=== PATIENT | female | born 1965 | race Caucasian/White ===

== ENCOUNTER → 2021-09-21 15:16 | Outpatient (BNVA) | payer OTHER, SELFPAY | PROVIDERS: PCP Internal Medicine; Visit Provider Hospitalist | DX: J44.9 Chronic obstructive pulmonary disease, unspecified (principal); J96.10 Chronic respiratory failure, unspecified whether with hypoxia or hypercapnia; R91.8 Other nonspecific abnormal finding of lung field; K44.9 Diaphragmatic hernia without obstruction or gangrene; F19.20 Other psychoactive substance dependence, uncomplicated | CPT/HCPCS: 99202 ==

== ENCOUNTER → 2021-10-12 15:30 | Outpatient (BNVA) | payer OTHER, SELFPAY | PROVIDERS: PCP Internal Medicine; Visit Provider Hospitalist | DX: J44.9 Chronic obstructive pulmonary disease, unspecified (principal); J96.10 Chronic respiratory failure, unspecified whether with hypoxia or hypercapnia; F19.20 Other psychoactive substance dependence, uncomplicated; R91.8 Other nonspecific abnormal finding of lung field; K44.9 Diaphragmatic hernia without obstruction or gangrene | CPT/HCPCS: 94618; 99212 ==

== ENCOUNTER 2021-10-16 15:18 | Outpatient (REF) | payer OTHER, SELFPAY ==
[2021-10-16 15:44] LABS: ABG Refer to POC result
--- NOTE | 2021-10-16 17:14 | PFT_ITS ---
Forced vital capacity 48%, FEV1 25%, FEV1/FVC ratio is 53. [id number] 8% and MVV 34%. Post bronchodilator therapy, there is small but significant improvement in all flow volumes. Total lung capacity 123%. Residual volume 230%. Diffusion capacity is 30%. CONCLUSION: Very severe obstructive airway disorder. There is minimal improvement after bronchodilator therapy suggesting diagnosis of asthma/COPD overlap syndrome. There is evidence of hyperinflation and air trapping. Clinical correlation is recommended. MD RAMBO Aguirre/MODL / [id number]
[2021-10-17 08:51] LABS: ABG Base Excess -2.8 mmol/L; ABG HCO3 22 mmol/L (22-26); ABG pCO2 38 mmHg (32-45); ABG pH 7.36 (7.35-7.45); ABG pO2 94 mmHg (83-108)
== END 2021-10-16 15:19 | disposition home or self-care (01) ==
LOC: HO.RESP 15:18
PROVIDERS: PCP Internal Medicine; Visit Provider Hospitalist
DX: J44.9 Chronic obstructive pulmonary disease, unspecified (principal)
CPT/HCPCS: 82803; 94060; 94727; 94729

== ENCOUNTER 2021-11-03 14:11 | Outpatient (REF) | payer OTHER, SELFPAY ==
--- NOTE | ~2021-11-03 | CT_ITS ---
EXAMINATION: CT CHEST SCREENING CLINICAL INFORMATION: Former smoker. Quit 5 years ago. 35 pack year history. COMPARISON: None. TECHNIQUE: Multidetector volumetric CT imaging of the chest is performed without contrast using low dose technique. Additional 2D coronal and sagittal reformatted images and axial 3D maximum intensity projection (MIP) images are generated on the CT workstation. This CT examination was performed using dose optimization techniques as appropriate, variously including the following: *Automated exposure control *Adjustment of mA and/or kV according to patient size (this includes techniques or standardized protocols for targeted exams where dose is matched to indication/reason for exam; i.e. extremities or head) *Use of iterative reconstruction technique DLP: 185 mGy-cm FINDINGS: LUNGS: There is emphysema. There are areas of clustered small peribronchial nodules or tree-in-bud appearance suggestive of airways disease in the right upper lobe. There are small calcified pulmonary nodules, largest measuring 3 mm in the right lower lobe axial image 281 and 3 mm in the left lower lobe axial image 236 series 5. There is a 4 mm peripheral or subpleural noncalcified right upper lobe nodule adjacent to the minor fissure axial image 251 series 5. There is a 4 mm peripheral or subpleural right middle lobe nodule axial image 297 series 5. These probably represent subpleural lymph nodes. No endobronchial or endotracheal lesion is seen. MEDIASTINUM: There is mild coronary artery calcification. The mediastinum is otherwise normal. PLEURA: There is no pleural effusion. No pleural mass or thickening. AXILLA: No lymphadenopathy. UPPER ABDOMEN: The left kidney is not seen. There is high attenuation seen dependently in the gallbladder suggestive of gallstones. OSSEOUS STRUCTURES: Unremarkable. CT/CT lung screening IMPRESSION: Emphysema. Small clustered peribronchial nodules or tree-in-bud appearance in the right upper lobe suggestive of airways disease. Small calcified and noncalcified micronodules. Mild coronary artery calcification. Left kidney not seen. Probable gallstones. ASSESSMENT: Lung-RADS category 2: Benign RECOMMENDATION: Annual low-dose chest CT follow-up recommended.
== END 2021-11-03 14:12 | disposition home or self-care (01) ==
LOC: HO.CT 14:11
PROVIDERS: Visit Provider Physician Assistant Medical
DX: Z87.891 Personal history of nicotine dependence (principal)
CPT/HCPCS: 71271; G0296

== ENCOUNTER → 2021-12-04 15:21 | Outpatient (BNVA) | payer OTHER, SELFPAY | PROVIDERS: PCP Internal Medicine; Visit Provider Hospitalist | DX: J44.9 Chronic obstructive pulmonary disease, unspecified (principal); J96.10 Chronic respiratory failure, unspecified whether with hypoxia or hypercapnia; R91.8 Other nonspecific abnormal finding of lung field; F19.20 Other psychoactive substance dependence, uncomplicated; K44.9 Diaphragmatic hernia without obstruction or gangrene | CPT/HCPCS: 99212 ==

== ENCOUNTER → 2022-03-09 15:21 | Outpatient (BNVA) | payer OTHER, SELFPAY | PROVIDERS: PCP Internal Medicine; Visit Provider Hospitalist | DX: J44.9 Chronic obstructive pulmonary disease, unspecified (principal); J96.10 Chronic respiratory failure, unspecified whether with hypoxia or hypercapnia; R91.8 Other nonspecific abnormal finding of lung field; K44.9 Diaphragmatic hernia without obstruction or gangrene; F19.20 Other psychoactive substance dependence, uncomplicated; Z79.52 Long term (current) use of systemic steroids; Z79.899 Other long term (current) drug therapy; Z99.81 Dependence on supplemental oxygen | CPT/HCPCS: 99212 ==

== ENCOUNTER → 2023-01-10 15:19 | Outpatient (BNVA) | payer OTHER, SELFPAY | PROVIDERS: PCP Internal Medicine; Visit Provider Hospitalist | DX: J44.9 Chronic obstructive pulmonary disease, unspecified (principal); J96.10 Chronic respiratory failure, unspecified whether with hypoxia or hypercapnia; R91.8 Other nonspecific abnormal finding of lung field; F19.20 Other psychoactive substance dependence, uncomplicated; K44.9 Diaphragmatic hernia without obstruction or gangrene | CPT/HCPCS: 99212 ==

== ENCOUNTER 2023-07-18 15:05 | Outpatient (AMB) | payer OTHER, SELFPAY ==
[2023-07-18 15:12] VITALS: PULSE 92; O2SAT 96; BMI 30.1
--- NOTE | 2023-07-18 15:12 | MHC.OFFVIS ---
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 She had been admitted to the hospital and ultimately discharged on palliative care. Subsequently she transition to hospice level of care. However her condition stabilized and she was able to not qualify for hospice and longer. Soft to 2 years hospice was discontinued. She continues to receive help from family. She continues on her oxygen supplementation. The patient continues on her respiratory therapy with good adherence. She has been steroid dependent. At this point will re-evaluate her overall condition. The patient also has a history of tobacco dependency. She now has quit. She has had stable pulmonary nodules in the past. Due to her smoking history she is high risk for malignancy so therefore we will refer her to the lung cancer screening program. 10/12/2021 The patient is here for a follow up visit. Doing well. Very dyspneic, moderate to severe. During our ambulation she became very tachycardic. She needs to change DME vendors for her oxygen after discontinuing the hospice care. Has been using her oxygen. Uses a walker. Needs better portability with her weakness and unsteady gain. Will request a POC. She is scheduled to have CT chest and PFTs soon. 12/04/2021 the patient is here for a pulmonary follow-up visit. She continues to have a hard time with her breathing. She continues use her oxygen with improving her symptoms although sometimes is hard for her to carry the oxygen tanks. Sometimes she where she is going to run out of oxygen as well. She was wondering if she should have a portable oxygen concentrator that maybe give her additional portability. Will continue to see her response to therapy. Will consider a portable oxygen concentrator in the near future. In the meantime she continues to have significant dyspnea on exertion. She did undergo pulmonary function studies. Her FEV1 is down to 0.67 L which is a very severe obstructive ventilatory defect. This is consistent with very severe COPD. She also had a CT scan of the chest which demonstrated that she has extensive emphysema but primarily upper lung zone predominant. The patient is not interested in lung transplantation at this time. Although, she may be a very good candidate for lung volume reduction interventions. I did talk to her about the one-way valves and other potential interventions that she can consider that can provide her with better quality of life. In the meantime she should be participating in pulmonary rehab. She has done pulmonary rehab a few times already. I did give her information about online pulmonary rehab that she should be participating at this time. The patient has very severe COPD and ongoing symptoms. She has significant air trapping. The patient will benefit from noninvasive ventilator. Will then help with decreased work of breathing also help with gas exchange. Patient already carries very poor prognosis. Noninvasive ventilator would provide her with improved prognosis and decrease hospitalizations. Therefore will go ahead and start the process for her to start noninvasive ventilator with local [employer] company. 03/09/2022 the patient is here for pulmonary follow-up visit. She continues to struggle with breathing. Significant dyspnea on exertion. She also has lower extremity weakness. She comes in on a wheelchair. She has been using her oxygen. She is upset she could not get the noninvasive ventilator. Unfortunately her insurance company denied it. She at this time will have her undergo a in-lab sleep study in order to monitor her end-tidal CO2 and see if she qualifies for PAP therapy that fashion. She continues use respiratory therapy. She does have partial response to therapy. We did talk about considering the lung volume reduction interventions such as the xephyr valves. She is strongly considering this. However, she would like to wait until next year. The patient needs to start pulmonary rehabilitation. I did provide her information previously about online rehab. 01/10/2023 the patient is here for a pulmonary follow-up visit. She has been about the same. Continues use her oxygen with good effect. She does not leave the house much. A less for doctor's appointments. She continues with respiratory therapy. She does not want to pursue and person pulmonary rehab. Also is not interested in pursuing any tertiary referral to [place]. she continues using prednisone as prescribed. She has been trying to cut down. Based on her chronic use of prednisone she will probably require a small dose daily. With did repeat her alpha-1 antitrypsin DNA swab since she has not had this type of swab in the past. Very unlikely to be positive with multiple alpha-1 testings done previously. 07/18/2023 the patient is here for a pulmonary follow-up visit. The patient has been doing fair. She was taken off the anticholinergics because of the history of glaucoma. She has required multiple interventions for the glaucoma and is still not completely under control. She also has significant cataracts that she needs to deal with afterwards. She has been on the Symbicort in his seems to be effective but not as effective as the Trelegy unfortunately. She is responding well to the theophylline. Therefore will try to increase the theophylline from 300-400 and will check her theophylline levels in the next few weeks. Will also recheck her venous gas and other blood work that is important. The patient will continue with current respiratory therapy. She also continues with her oxygen. The patient is willing to consider the lung volume reduction intervention valves. Only if it can be done locally. In there may be some AE program opening up at [facility]. Will consider that once her eye issues are resolved. The meantime will continue to optimize respiratory therapy and will follow-up in 3 months. [facility] Medical History (Updated 07/18/23 @ 22:21 by Hugo Cobb MD) Chronic low back pain Kidney donor Depression Hypertension Migraines On supplemental oxygen therapy Personal history of nicotine dependence Pulmonary nodules Hiatal hernia Steroid dependent Chronic respiratory failure COPD (chronic obstructive pulmonary disease) Surgical History (Updated 11/03/21 @ 14:01 by Paulina Patterson PA-C) History of nasal surgery History of kidney donation Social History (Updated 11/03/21 @ 14:11 by Paulina Patterson PA-C) Patient Tobacco Use Status: Former Tobacco user Quit Date: 11/18/2018 Tobacco use type: Cigarette Years Smoked: onset 18, 1/2-1ppd x 35yrs, 25pyh, quit 2014 Review of Systems Const Reports fatigue, Denies fever(s) and Reports weakness Eyes Reports change in vision ENT Denies change in voice Card Denies palpitations and Reports dyspnea on exertion Resp Denies chest congestion, Reports cough, Denies hemoptysis and Reports dyspnea on exertion GI Reports no additional complaints Musc Reports abnormal gait and Reports back pain Skin/Breast Denies rash Neuro Reports abnormal gait and Reports weakness Endo Reports fatigue and Denies palpitations Physical Exam Vital Signs: Last Vital Signs Pulse 92 07/18/23 15:12 Pulse Ox 96 07/18/23 15:12 Oxygen Delivery Method Room Air 07/18/23 15:12 BMI result Body Mass Index 30.1 Const General: alert Neck Neck: Yes normal visual inspection, Yes full ROM and Yes no lymphadenopathy Chest Chest palpation & inspection: normal inspection of the chest Resp Auscultation: no wheezes and diminished lung sounds Cardio Rate: regular rate Rhythm: regular rhythm Heart sounds: S1 normal heart sound present and S2 normal heart sound present GI Palpation (GI): Soft to palpation and nontender Auscultation: normal bowel sounds Skin General skin exam: rashes and/or lesions noted Assessment & Plan Assessment & Plan (1) COPD (chronic obstructive pulmonary disease): Code(s): J44.9 - Chronic obstructive pulmonary disease, unspecified Qualifiers: COPD type: emphysema Emphysema type: centrilobular Qualified Code(s): J43.2 - Centrilobular emphysema (2) Chronic respiratory failure: Code(s): J96.10 - Chronic respiratory failure, unspecified whether with hypoxia or hypercapnia Qualifiers: Respiratory failure complication: hypoxia Qualified Code(s): J96.11 - Chronic respiratory failure with hypoxia (3) Steroid dependent: Code(s): F19.20 - Other psychoactive substance dependence, uncomplicated (4) Hiatal hernia: Code(s): K44.9 - Diaphragmatic hernia without obstruction or gangrene (5) Pulmonary nodules: Code(s): R91.8 - Other nonspecific abnormal finding of lung field Plan continue oxygen supplementation with sleep and activity : 3L pulse oxygen with activity. Needs better portability outside of the home. She needs a battery powered portable oxygen concentrator for improved portability outside of the house. Will use 2L oxygen while sleeping. stopped Trelegy continue symbiocort short-acting beta agonist as needed prednisone 5 mg daily increased theophylline 400mg will come in to recheck levels consider lung volume reduction interventions. This will require a referral to [place] or [facility]. pulmonary rehabilitation. On line will be sufficient she is already exercising at home on her treadmill Follow-up in 3-4 months Orders: Orders Ferritin Today J44.9 - Chronic obstructive pulmonary disease, unspecified, J96.10 - Chronic respiratory failure, unspecified whether with hypoxia or hypercapnia IRON PROFILE Today J44.9 - Chronic obstructive pulmonary disease, unspecified, J96.10 - Chronic respiratory failure, unspecified whether with hypoxia or hypercapnia Complete Blood Count Auto Diff Today J44.9 - Chronic obstructive pulmonary disease, unspecified, J96.10 - Chronic respiratory failure, unspecified whether with hypoxia or hypercapnia Liver Panel Today J44.9 - Chronic obstructive pulmonary disease, unspecified, J96.10 - Chronic respiratory failure, unspecified whether with hypoxia or hypercapnia Basic Metabolic Panel Today J44.9 - Chronic obstructive pulmonary disease, unspecified, J96.10 - Chronic respiratory failure, unspecified whether with hypoxia or hypercapnia Magnesium Today J44.9 - Chronic obstructive pulmonary disease, unspecified, J96.10 - Chronic respiratory failure, unspecified whether with hypoxia or hypercapnia Vitamin D 25-OH (D2 and D3) Today J44.9 - Chronic obstructive pulmonary disease, unspecified, J96.10 - Chronic respiratory failure, unspecified whether with hypoxia or hypercapnia Venous Blood Gas Today J44.9 - Chronic obstructive pulmonary disease, unspecified, J96.10 - Chronic respiratory failure, unspecified whether with hypoxia or hypercapnia Theophylline Today J44.9 - Chronic obstructive pulmonary disease, unspecified, J96.10 - Chronic respiratory failure, unspecified whether with hypoxia or hypercapnia Phosphorus Today J44.9 - Chronic obstructive pulmonary disease, unspecified, J96.10 - Chronic respiratory failure, unspecified whether with hypoxia or hypercapnia Medications: New theophylline ER 400 mg PO DAILY 30 days 30 tabs 5RF Coding Level of Care Code Est Pt Level 4 (47443) Diagnoses Centrilobular emphysema J43.2 COPD type: emphysema Emphysema type: centrilobular Chronic respiratory failure with hypoxia J96.11 Respiratory failure complication: hypoxia Steroid dependent F19.20 Hiatal hernia K44.9 Pulmonary nodules R91.8 Time Spent (min) 17
== END 2023-07-18 15:37 | disposition home or self-care (01) ==
PROVIDERS: PCP Internal Medicine; Visit Provider Hospitalist
DX: J43.2 Centrilobular emphysema (principal); J96.11 Chronic respiratory failure with hypoxia; F19.20 Other psychoactive substance dependence, uncomplicated; K44.9 Diaphragmatic hernia without obstruction or gangrene; R91.8 Other nonspecific abnormal finding of lung field
CPT/HCPCS: 99214

== ENCOUNTER → 2023-07-18 15:05 | Outpatient (BNVA) | payer OTHER, SELFPAY | PROVIDERS: PCP Internal Medicine; Visit Provider Hospitalist | DX: J43.2 Centrilobular emphysema (principal); J96.11 Chronic respiratory failure with hypoxia; R91.8 Other nonspecific abnormal finding of lung field; K44.9 Diaphragmatic hernia without obstruction or gangrene; F19.20 Other psychoactive substance dependence, uncomplicated | CPT/HCPCS: 99212 ==

== ENCOUNTER 2023-12-26 15:23 | Outpatient (REF) | payer OTHER, SELFPAY ==
[2023-12-26 15:46] LABS: MANUAL DIFF FLAG NO
[2023-12-26 15:51] LABS: Basophils Absolute Auto 0.1 X10*3/uL (0.0-0.2); Basophils Percent Auto 0.6 % (0-2); Eosinophils Absolute Auto 0.1 X10*3/uL (0.0-0.4); Eosinophils Percent Auto 1.3 % (0-4); Hematocrit 33.5 % (37.0-47.0); Hemoglobin 10.2 g/dl (12.0-16.0); Imm Gran Abs Auto 0.03 X10*3/uL (0.00-0.03); Imm Gran Pct Auto 0.3 % (0.0-0.4); Lymphocytes Absolute Auto 1.7 X10*3/uL (1.2-4.9); Lymphocytes Percent Auto 18.7 % (20-40); Mean Corpuscular HGB Conc 30.4 g/dl (31.0-35.0); Mean Corpuscular Hemoglobin 24.2 pg (27.0-33.0); Mean Corpuscular Volume 79.4 fL (80.0-98.0); Mean Platelet Volume 10.6 fL (9.4-12.3); Monocytes Absolute Auto 0.4 X10*3/uL (0.1-1.2); Monocytes Percent Auto 4.8 % (2-11); Neutrophils Absolute Auto 6.9 x10*3/uL (2.0-8.3); Neutrophils Percent Auto 74.3 % (45-73); Platelet Count 405 X10*3/uL (160-400); Red Blood Count 4.22 X10*6/uL (4.20-5.50); Red Cell Distribution Width 15.9 % (11.0-16.0); White Blood Count 9.3 X10*3/uL (4.8-10.8)
[2023-12-26 15:53] LABS: Venous Blood Gas Refer to POC result
[2023-12-26 15:54] LABS: VBG Base Excess 2.6 mmol/L; VBG HCO3 27 mmol/L (22-26); VBG pCO2 44 mmHg; VBG pO2 43 mmHg
[2023-12-26 16:54] LABS: Alanine Aminotransferase 8 U/L (0-31); Albumin Level 4.3 g/dL (3.5-5.0); Alkaline Phosphatase 70 U/L (39-117); Anion Gap 16 (12-20); Aspartate Amino Transferase 11 U/L (5-31); Bilirubin Direct < 0.2 mg/dL (0.0-0.5); Bilirubin Total 0.2 mg/dL (0.0-1.0); Blood Urea Nitrogen 7 mg/dL (9-16); Calcium 9.7 mg/dL (8.4-10.2); Carbon Dioxide 25 mmol/L (22-29); Chloride 103 mmol/L (96-108); Estimated Glomerular Filt Rate > 60; Glucose Random 108 mg/dL (60-115); Iron 24 mcg/dL (30-160); Magnesium 1.9 mg/dL (1.6-2.6); Percent Iron Saturation 7 % (15-50); Phosphorus 2.4 mg/dL (2.7-4.5); Potassium 4.2 mmol/L (3.3-5.1); Sodium 140 mmol/L (135-145); Total Iron Binding Capacity 330 mcg/dL (228-428); Total Protein 7.3 g/dL (6.5-8.0); Unsaturated Iron Binding 306 ug/dL
[2023-12-26 17:08] LABS: Ferritin 9 ng/mL (10-250)
[2023-12-30 16:13] LABS: Vitamin D 25-OH, D2 <4 ng/mL; Vitamin D 25-OH, D3 25 ng/mL; Vitamin D 25-OH, Total 25 ng/mL (30-100)
== END 2023-12-26 15:24 | disposition home or self-care (01) ==
LOC: HO.LAB 15:23
PROVIDERS: Visit Provider Hospitalist
DX: J43.2 Centrilobular emphysema (principal); J96.11 Chronic respiratory failure with hypoxia; K44.9 Diaphragmatic hernia without obstruction or gangrene; R91.8 Other nonspecific abnormal finding of lung field; Z79.52 Long term (current) use of systemic steroids; Z79.899 Other long term (current) drug therapy; Z99.81 Dependence on supplemental oxygen
CPT/HCPCS: 36415; 80048; 80076; 80198; 82306; 82728; 82803; 83540; 83735; 84100; 85025; 99212

== ENCOUNTER 2023-12-26 15:47 | Outpatient (AMB) | payer OTHER, SELFPAY ==
--- NOTE | 2023-12-26 15:50 | A.OFFVIS_ITS ---
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 She had been admitted to the hospital and ultimately discharged on palliative care. Subsequently she transition to hospice level of care. However her condition stabilized and she was able to not qualify for hospice and longer. Soft to 2 years hospice was discontinued. She continues to receive help from family. She continues on her oxygen supplementation. The patient continues on her respiratory therapy with good adherence. She has been steroid dependent. At this point will re-evaluate her overall condition. The patient also has a history of tobacco dependency. She now has quit. She has had stable pulmonary nodules in the past. Due to her smoking history she is high risk for malignancy so therefore we will refer her to the lung cancer screening program. 03/09/2022 the patient is here for pulmonary follow-up visit. She continues to struggle with breathing. Significant dyspnea on exertion. She also has lower extremity weakness. She comes in on a wheelchair. She has been using her oxygen. She is upset she could not get the noninvasive ventilator. Unfortunately her insurance company denied it. She at this time will have her undergo a in-lab sleep study in order to monitor her end-tidal CO2 and see if she qualifies for PAP therapy that fashion. She continues use respiratory therapy. She does have partial response to therapy. We did talk about considering the lung volume reduction interventions such as the xephyr valves. She is strongly considering this. However, she would like to wait until next year. The patient needs to start pulmonary rehabilitation. I did provide her information previously about online rehab. 01/10/2023 the patient is here for a pulmonary follow-up visit. She has been about the same. Continues use her oxygen with good effect. She does not leave the house much. A less for doctor's appointments. She continues with resp iratory therapy. She does not want to pursue and person pulmonary rehab. Also is not interested in pursuing any tertiary referral to [facility]. she continues using prednisone as prescribed. She has been trying to cut down. Based on her chronic use of prednisone she will probably require a small dose daily. With did repeat her alpha-1 antitrypsin DNA swab since she has not had this type of swab in the past. Very unlikely to be positive with multiple alpha-1 testings done previously. 07/18/2023 the patient is here for a pulmonary follow-up visit. The patient has been doing fair. She was taken off the anticholinergics because of the history of glaucoma. She has required multiple interventions for the glaucoma and is still not completely under control. She also has significant cataracts that she needs to deal with afterwards. She has been on the Symbicort in his seems to be effective but not as effective as the Trelegy unfortunately. She is responding well to the theophylline. Therefore will try to increase the theophylline from 300-400 and will check her theophylline levels in the next few weeks. Will also recheck her venous gas and other blood work that is important. The patient will continue with current respiratory therapy. She also continues with her oxygen. The patient is willing to consider the lung volume reduction intervention valves. Only if it can be done locally. In there may be some AE program opening up at [facility]. Will consider that once her eye issues are resolved. The meantime will continue to optimize respiratory therapy and will follow-up in 3 months. 12/26/2023 the patient is here for pulmonary follow-up visit. She continues to have significant shortness of breath. She has been using her oxygen regularly. She has been upset because she does not have a portable oxygen concentrator and therefore has limited portability. She was at her daughter's wedding and she ran out of oxygen and she started developing significant shortness of breath. The patient needed assistance in order to get her oxygen readily available. I will reach out to her [employer] company again, Jenna, to see about getting her portable oxygen concentrator. The patient also has been using the oxygen while sleeping. He has been affecting beneficial. She continues use her respiratory medicine. She still continues to use prednisone. Still has episodes of diffic ulty breathing. Will go ahead and request pulmonary function studies. She did have a blood gas done today. Her CO2 continues to be stable 44 mmHg. The patient continues to also be anemic. Has significant iron-deficiency anemia and she needs to follow-up with her primary care doctor. The patient will start taking iron. She may need IV iron if her numbers are getting any better. Indeed her significant anemia as making her respiratory symptoms worse since she has advanced COPD. [facility] Medical History (Updated 07/18/23 @ 22:21 by Hugo Cobb MD) Chronic low back pain Kidney donor Depression Hypertension Migraines On supplemental oxygen therapy Personal history of nicotine dependence Pulmonary nodules Hiatal hernia Steroid dependent Chronic respiratory failure COPD (chronic obstructive pulmonary disease) Surgical History (Updated 11/03/21 @ 14:01 by Paulina Patterson PA-C) History of nasal surgery History of kidney donation Social History (Updated 11/03/21 @ 14:11 by Paulina Patterson PA-C) Patient Tobacco Use Status: Former Tobacco user Quit Date: 11/18/2018 Tobacco use type: Cigarette Years Smoked: onset 18, 1/2-1ppd x 35yrs, 25pyh, quit 2014 Review of Systems Const Reports fatigue, Denies fever(s) and Reports weakness Eyes Reports change in vision ENT Denies change in voice Card Denies palpitations, Reports dyspnea and Reports dyspnea on exertion Resp Denies chest congestion, Reports cough, Denies hemoptysis, Reports dyspnea, Reports dyspnea on exertion and Reports wheezing GI Reports no additional complaints Musc Reports abnormal gait and Reports back pain Skin/Breast Denies rash Neuro Reports abnormal gait and Reports weakness Endo Reports fatigue and Denies palpitations Aller/Immun Reports wheezing Physical Exam Vital Signs: Last Vital Signs Pulse 89 12/26/23 15:51 Pulse Ox 94 12/26/23 15:51 Oxygen Delivery Method Room Air 12/26/23 15:51 BMI result Body Mass Index 29.2 Const General: alert HEENT Head: Yes normocephalic Neck Neck: Yes normal visual inspection, Yes full ROM and Yes no lymphadenopathy Chest Chest palpation & inspection: normal inspection of the chest Resp Effort & Inspection: normal respiratory effort Auscultation: no wheezes and diminished lung sounds Cardio Rate: regular rate Rhythm: regular rhythm Heart sounds: S1 normal heart sound present and S2 normal heart sound present GI Palpation (GI): Soft to palpation and nontender Auscultation: normal bowel sounds Skin General skin exam: no rashes or lesions noted Extrem General: Yes no clubbing, cyanosis or edema Results Reviewed Results Reviewed: RUN: 12/26/23 6671 PAGE 1 [facility] [address] [place] [id number] Senior Executive Assistant: Tom Schaeffer M.D. Specimen Inquiry Name: Marielle Das Age/Sex: 58/F : 1965 Unit#: [id number] Attend Dr: Hugo Cobb MD Re12/26/23 Status: REG REF [facility] Disch: SPEC : [id number] DAFNE: 12/26/23 STATUS: COMP REQ : [id number] RECD: 12/26/[address]: Hugo Cobb MD COMP: 12/26/23 ENTERED: 12/26/23-[address] [facility] [address]: ORDERED: Liver Panel, BMP, Phos, MG, IRON PROF, Ferritin Test Result Flag Reference Sodium 140 135-145 mmol/L Potassium 4.2 3.3-5.1 mmol/L CL 103 96-108 mmol/L CO2 25 22-29 mmol/L Gap 16 12-20 BUN 7 L 9-16 mg/dL Creat 0.77 0.5-1.4 mg/dL EGFR > 60 NOTE: For -[place] individuals, multiply the result by 1.210. Chronic Kidney Disease: Estimated GFR < 60 mL/min/1.73m2 Severe Kidney Disease: Estimated GFR < 15 mL/min/1.73m2 Glucose, Random 108 60-115 mg/dL CA 9.7 8.4-10.2 mg/dL Phosphorus 2.4 L 2.7-4.5 mg/dL Magnesium 1.9 1.6-2.6 mg/dL Iron 24 L 30-160 mcg/dL TIBC 330 228-428 mcg/dL Saturation 7 L 15-50 % UIBC 306 ug/dL Ferritin 9 L 10-250 ng/mL Total Bili 0.2 0.0-1.0 mg/dL Direct Bili < 0.2 0.0-0.5 mg/dL AST (GOT) 11 5-31 U/L ALT (GPT) 8 0-31 U/L Protein, Total 7.3 6.5-8.0 g/dL Alb 4.3 3.5-5.0 g/dL Alk Phos 70 39-117 U/L END OF REPORT RUN: 12/26/23 PAGE 1 [facility] [address] [place] [id number] Senior Executive Assistant: Tom Schaeffer M.D. Specimen Inquiry Name: Marielle Das Age/Sex: 58/F : 1965 Unit#: [id number] Attend Dr: Hugo Cobb MD Re12/26/23 Status: REG REF Location: [facility] Disch: SPEC : [id number] DAFNE: 12/26/23 STATUS: COMP REQ : [id number] RECD: 12/26/[address] [facility] [address]: Hugo Cobb MD COMP: 12/26/23 ENTERED: 12/26/[address]: ORDERED: Liver Panel, BMP, Phos, MG, IRON PROF, Ferritin Test Result Flag Reference Sodium 140 135-145 mmol/L Potassium 4.2 3.3-5.1 mmol/L CL 103 96-108 mmol/L CO2 25 22-29 mmol/L Gap 16 12-20 BUN 7 L 9-16 mg/dL Creat 0.77 0.5-1.4 mg/dL EGFR > 60 NOTE: For -[place] individuals, multiply the result by 1.210. Chronic Kidney Disease: Estimated GFR < 60 mL/min/1.73m2 Severe Kidney Disease: Estimated GFR < 15 mL/min/1.73m2 Glucose, Random 108 60-115 mg/dL CA 9.7 8.4-10.2 mg/dL Phosphorus 2.4 L 2.7-4.5 mg/dL Magnesium 1.9 1.6-2.6 mg/dL Iron 24 L 30-160 mcg/dL TIBC 330 228-428 mcg/dL Saturation 7 L 15-50 % UIBC 306 ug/dL Ferritin 9 L 10-250 ng/mL Total Bili 0.2 0.0-1.0 mg/dL Direct Bili < 0.2 0.0-0.5 mg/dL AST (GOT) 11 5-31 U/L ALT (GPT) 8 0-31 U/L Protein, Total 7.3 6.5-8.0 g/dL Alb 4.3 3.5-5.0 g/dL Alk Phos 70 39-117 U/L END OF REPORT [address] [place] [address] CT Scan Report Signed Patient: Marielle Das MR#: [id number] : 1965 Acct:[id number] Age/Sex: 56 / F ADM Date: 11/03/21 Loc: .CT Attending Dr: Paulina Patterson PA-C Ordering Physician: Paulina Patterson PA-C Date of Service: 11/03/21 Procedure(s): CT lung screening Accession Number(s): [id number] cc: Paulina Patterson PA-C~ EXAMINATION: CT CHEST SCREENING CLINICAL INFORMATION: Former smoker. Quit 5 years ago. 35 pack year history. COMPARISON: None. TECHNIQUE: Multidetector volumetric CT imaging of the chest is performed without contrast using low dose technique. Additional 2D coronal and sagittal reformatted images and axial 3D maximum intensity projection (MIP) images are generated on the CT workstation. This CT examination was performed using dose optimization techniques as appropriate, variously including the following: *Automated exposure control *Adjustment of mA and/or kV according to patient size (this includes techniques or standardized protocols for targeted exams where dose is matched to indication/reason for exam; i.e. extremities or head) *Use of iterative reconstruction technique DLP: 185 mGy-cm FINDINGS: LUNGS: There is emphysema. There are areas of clustered small peribronchial nodules or tree-in-bud appearance suggestive of airways disease in the right upper lobe. There are small calcified pulmonary nodules, largest measuring 3 mm in the right lower lobe axial image 281 and 3 mm in the left lower lobe axial image 236 series 5. There is a 4 mm peripheral or subpleural noncalcified right upper lobe nodule adjacent to the minor fissure axial image 251 series 5. There is a 4 mm peripheral or subpleural right middle lobe nodule axial image 297 series 5. These probably represent subpleural lymph nodes. No endobronchial or endotracheal lesion is seen. MEDIASTINUM: There is mild coronary artery calcification. The mediastinum is otherwise normal. PLEURA: There is no pleural effusion. No pleural mass or thickening. AXILLA: No lymphadenopathy. UPPER ABDOMEN: The left kidney is not seen. There is high attenuation seen dependently in the gallbladder suggestive of gallstones. OSSEOUS STRUCTURES: Unremarkable. CT/CT lung screening IMPRESSION: Emphysema. Small clustered peribronchial nodules or tree-in-bud appearance in the right upper lobe suggestive of airways disease. Small calcified and noncalcified micronodules. Mild coronary artery calcification. Left kidney not seen. Probable gallstones. ASSESSMENT: Lung-RADS category 2: Benign RECOMMENDATION: Annual low-dose chest CT follow-up recommended. Dictated By: Nivia Stoll MD Signed By: <Electronically signed by Nivia Stoll MD in OV> 11/07/21 1425 DD/ 1529 TD/TT: Hall Supervisor: AURA Assessment & Plan Assessment & Plan (1) COPD (chronic obstructive pulmonary disease): Code(s): J44.9 - Chronic obstructive pulmonary disease, unspecified Category: Medical Qualifiers: COPD type: emphysema Emphysema type: centrilobular Qualified Code(s): J43.2 - Centrilobular emphysema (2) Chronic respiratory failure: Code(s): J96.10 - Chronic respiratory failure, unspecified whether with hypoxia or hypercapnia Category: Medical Qualifiers: Respiratory failure complication: hypoxia Qualified Code(s): J96.11 - Chronic respiratory failure with hypoxia (3) Steroid dependent: Code(s): F19.20 - Other psychoactive substance dependence, uncomplicated Category: Medical (4) Hiatal hernia: Code(s): K44.9 - Diaphragmatic hernia without obstruction or gangrene Category: Medical (5) Pulmonary nodules: Code(s): R91.8 - Other nonspecific abnormal finding of lung field Category: Medical Plan continue oxygen supplementation with sleep and activity : 3L pulse oxygen with activity. Needs better portability outside of the home. She needs a battery powered portable oxygen concentrator for improved portability outside of the house. Will use 2L oxygen while sleeping. continue symbiocort short-acting beta agonist as needed prednisone 5 mg daily continue theophylline 400mg will come in to recheck levels consider lung volume reduction interventions. This will require a referral to [facility] or [facility]. pulmonary rehabilitation. On line will be sufficient she is already exercising at home on her treadmill start oral Iron supplementation, may need IV iron if no better. Will f/u with PCP regarding her Iron deficiency anemia PFTs LDCT Follow-up in 3-4 months Orders: Orders PFT pulmonary function test Today J43.2 - Centrilobular emphysema Coding Level of Care Code Est Pt Level 5 (07179) Diagnoses Centrilobular emphysema J43.2 COPD type: emphysema Emphysema type: centrilobular Chronic respiratory failure with hypoxia J96.11 Respiratory failure complication: hypoxia Steroid dependent F19.20 Hiatal hernia K44.9 Pulmonary nodules R91.8 Time Spent (min) 30
[2023-12-26 15:51] VITALS: PULSE 89; O2SAT 94; BMI 29.2
== END 2023-12-26 16:18 | disposition home or self-care (01) ==
PROVIDERS: PCP Internal Medicine; Visit Provider Hospitalist
DX: J43.2 Centrilobular emphysema (principal); J96.11 Chronic respiratory failure with hypoxia; R91.8 Other nonspecific abnormal finding of lung field; F19.20 Other psychoactive substance dependence, uncomplicated; K44.9 Diaphragmatic hernia without obstruction or gangrene
CPT/HCPCS: 99214

== ENCOUNTER 2024-02-12 15:07 | Outpatient (REF) | payer OTHER, SELFPAY ==
--- NOTE | ~2024-02-12 | CT_ITS ---
EXAMINATION: CT LUNG SCREENING CLINICAL INFORMATION: Personal history of nicotine dependence. The patient has a 35 pack-year history of smoking, having quit 9 years ago. COMPARISON: CT chest 11/03/2021. TECHNIQUE: Multidetector volumetric CT imaging of the chest is performed on a Siemens SOMATOM Perspective scanner without contrast using low dose technique. Additional 2D coronal and sagittal reformatted images and axial 3D maximum intensity projection (MIP) images are generated on the CT workstation. This CT examination was performed using dose optimization techniques as appropriate, variously including the following: *Automated exposure control *Adjustment of mA and/or kV according to patient size (this includes techniques or standardized protocols for targeted exams where dose is matched to indication/reason for exam; i.e. extremities or head) *Use of iterative reconstruction technique TOTAL EXAM DLP: 96 mGy-cm. CTDIvol: 2.38 mGy. FINDINGS: PULMONARY NODULES: Tree-in-bud nodularity and scarring is again seen at the right lung apex. 3 mm pleural-based right upper lobe lymph node sitting on the minor fissure, unchanged (5:265 compare prior 5:251. Again seen is an area of marked mucus plugging in the right upper lobe (5:230 compare prior 5:212). No new, increasing-sized or concerning pulmonary nodules are seen. LUNGS: Lungs bilaterally symmetrically expanded. There is marked emphysema. [id number] bronchial thickening is present without bronchiectasis. No effusion or pneumothorax. Central airways patent. MEDIASTINUM: No mediastinal, hilar or axillary adenopathy or free fluid collection. CORONARY ARTERY CALCIFICATION: Mild. THYROID GLAND: The left lobe of the thyroid is enlarged and hypoattenuating. A 2.5 cm mass cannot be excluded in this area. Dedicated thyroid ultrasound recommended. CARDIOVASCULAR STRUCTURES: Aorta prominent at 3.7 cm but not aneurysmal. heart size normal. No pericardial effusion. CHEST WALL/AXILLA: Unremarkable. UPPER ABDOMEN: Included portions of the solid organs in the upper abdomen unremarkable on noncontrast imaging. The left kidney is not seen and may be absent. OSSEOUS STRUCTURES: No suspicious focal findings. CT/CT lung screening IMPRESSION: 1. No evidence of pulmonary malignancy. 2. Marked emphysema. 3. Enlarged left lobe of the thyroid with possible 2.5 cm mass. Dedicated thyroid ultrasound recommended. 4. Other incidental findings as described above. 5. Lung-RADS Category S Negative. There are no clinically significant, or potentially clinically significant, findings not related to the lungs requiring urgent additional evaluation. ASSESSMENT: 1. Lung-RADS Category 2: Benign appearance or behavior of nodules. N/A RECOMMENDATION: Continued routine annual low-dose CT lung screening in 1 year is recommended. An order for CT CHEST LOW DOSE CANCER SCREENING ([id number]) can be placed.
== END 2024-02-12 15:08 | disposition home or self-care (01) ==
LOC: HO.CT 15:07
PROVIDERS: PCP Internal Medicine; Visit Provider Physician Assistant Medical
DX: Z12.2 Encounter for screening for malignant neoplasm of respiratory organs (principal); Z87.891 Personal history of nicotine dependence
CPT/HCPCS: 71271

== ENCOUNTER 2024-03-10 15:32 | Outpatient (REF) | payer OTHER, SELFPAY ==
[2024-03-10 16:15] LABS: MANUAL DIFF FLAG NO
[2024-03-10 17:42] LABS: Basophils Absolute Auto 0.1 X10*3/uL (0.0-0.2); Basophils Percent Auto 0.6 % (0-2); Eosinophils Absolute Auto 0.2 X10*3/uL (0.0-0.4); Eosinophils Percent Auto 1.7 % (0-4); Hematocrit 40.2 % (37.0-47.0); Hemoglobin 13.1 g/dl (12.0-16.0); Imm Gran Abs Auto 0.05 X10*3/uL (0.00-0.03); Imm Gran Pct Auto 0.4 % (0.0-0.4); Lymphocytes Absolute Auto 2.1 X10*3/uL (1.2-4.9); Lymphocytes Percent Auto 17.4 % (20-40); Mean Corpuscular HGB Conc 32.6 g/dl (31.0-35.0); Mean Corpuscular Hemoglobin 28.5 pg (27.0-33.0); Mean Corpuscular Volume 87.6 fL (80.0-98.0); Mean Platelet Volume 11.6 fL (9.4-12.3); Monocytes Absolute Auto 0.7 X10*3/uL (0.1-1.2); Monocytes Percent Auto 5.4 % (2-11); Neutrophils Percent Auto 74.5 % (45-73); Platelet Count 315 X10*3/uL (160-400); Red Blood Count 4.59 X10*6/uL (4.20-5.50); Red Cell Distribution Width 15.4 % (11.0-16.0); White Blood Count 12.1 X10*3/uL (4.8-10.8)
[2024-03-10 18:24] LABS: Anion Gap 13 (12-20); Blood Urea Nitrogen 10 mg/dL (9-16); Calcium 9.6 mg/dL (8.4-10.2); Carbon Dioxide 27 mmol/L (22-29); Chloride 99 mmol/L (96-108); Estimated Glomerular Filt Rate > 60; Glucose Random 101 mg/dL (60-115); Iron 94 mcg/dL (30-160); Percent Iron Saturation 32 % (15-50); Potassium 4.4 mmol/L (3.3-5.1); Sodium 135 mmol/L (135-145); Total Iron Binding Capacity 295 mcg/dL (228-428); Unsaturated Iron Binding 201 ug/dL
[2024-03-10 18:33] LABS: Ferritin 21 ng/mL (10-250)
[2024-03-13 07:22] LABS: Theophylline 16.7
[2024-03-16 14:48] LABS: Vitamin D 25-OH, D2 <4 ng/mL; Vitamin D 25-OH, D3 30 ng/mL; Vitamin D 25-OH, Total 30 ng/mL (30-100)
== END 2024-03-10 15:33 | disposition home or self-care (01) ==
LOC: HO.LAB 15:32
PROVIDERS: PCP Internal Medicine; Visit Provider Hospitalist
DX: J43.2 Centrilobular emphysema (principal); D50.9 Iron deficiency anemia, unspecified; E04.1 Nontoxic single thyroid nodule; R91.8 Other nonspecific abnormal finding of lung field; Z79.899 Other long term (current) drug therapy
CPT/HCPCS: 36415; 80048; 80198; 82306; 82728; 83540; 84100; 84443; 85025; 99212

== ENCOUNTER 2024-03-10 15:32 | Outpatient (AMB) | payer OTHER, SELFPAY ==
[2024-03-10 15:37] VITALS: PULSE 83; O2SAT 97; BMI 29.2
--- NOTE | 2024-03-10 15:37 | MHC.OFFVIS ---
Vital Signs 03/10/24 15:37 Height 5 ft 3 in Weight 165 lb BMI 29.2 Pulse 83 Pulse Source Pulse Oximeter Pulse Oximetry (%) 97 Oxygen Delivery Method Room Air Comment 3 Liters Oxygen([employer]) Intake Visit Reasons: copd Human Resources Benefits Assistant Required: No Allergies clarithromycin [From Biaxin] Allergy (Severe, Verified 03/10/24 15:39) Rash fentanyl Allergy (Severe, Verified 03/10/24 15:39) Agitated Influenza Virus Vaccines Allergy (Severe, Verified 03/10/24 15:39) Fever HPI Comments Details: The patient is a 59-year-old woman with a known history of COPD, chronic respiratory failure on oxygen who apparently has been decompensated from respiratory standpoint. She had been admitted to the hospital and ultimately discharged on palliative care. Subsequently she transition to hospice level of care. However her condition stabilized and she was able to not qualify for hospice and longer. Soft to 2 years hospice was discontinued. She continues to receive help from family. She continues on her oxygen supplementation. The patient continues on her respiratory therapy with good adherence. She has been steroid dependent. At this point will re-evaluate her overall condition. The patient also has a history of tobacco dependency. She now has quit. She has had stable pulmonary nodules in the past. Due to her smoking history she is high risk for malignancy so therefore we will refer her to the lung cancer screening program. 03/09/2022 the patient is here for pulmonary follow-up visit. She continues to struggle with breathing. Significant dyspnea on exertion. She also has lower extremity weakness. She comes in on a wheelchair. She has been using her oxygen. She is upset she could not get the noninvasive ventilator. Unfortunately her insurance company denied it. She at this time will have her undergo a in-lab sleep study in order to monitor her end-tidal CO2 and see if she qualifies for PAP therapy that fashion. She continues use respiratory therapy. She does have partial response to therapy. We did talk about considering the lung volume reduction interventions such as the xephyr valves. She is strongly considering this. However, she would like to wait until next year. The patient needs to start pulmonary rehabilitation. I did provide her information previously about online rehab. 01/10/2023 the patient is here for a pulmonary follow-up visit. She has been about the same. Continues use her oxygen with good effect. She does not leave the house much. A less for doctor's appointments. She continues with respiratory therapy. She does not want to pursue and person pulmonary rehab. Also is not interested in pursuing any tertiary referral to [place]. she continues using prednisone as prescribed. She has been trying to cut down. Based on her chronic use of prednisone she will probably require a small dose daily. With did repeat her alpha-1 antitrypsin DNA swab since she has not had this type of swab in the past. Very unlikely to be positive with multiple alpha-1 testings done previously. 07/18/2023 the patient is here for a pulmonary follow-up visit. The patient has been doing fair. She was taken off the anticholinergics because of the history of glaucoma. She has required multiple interventions for the glaucoma and is still not completely under control. She also has significant cataracts that she needs to deal with afterwards. She has been on the Symbicort in his seems to be effective but not as effective as the Trelegy unfortunately. She is responding well to the theophylline. Therefore will try to increase the theophylline from 300-400 and will check her theophylline levels in the next few weeks. Will also recheck her venous gas and other blood work that is important. The patient will continue with current respiratory therapy. She also continues with her oxygen. The patient is willing to consider the lung volume reduction intervention valves. Only if it can be done locally. In there may be some AE program opening up at [facility]. Will consider that once her eye issues are resolved. The meantime will continue to optimize respiratory therapy and will follow-up in 3 months. 12/26/2023 the patient is here for pulmonary follow-up visit. She continues to have significant shortness of breath. She has been using her oxygen regularly. She has been upset because she does not have a portable oxygen concentrator and therefore has limited portability. She was at her daughter's wedding and she ran out of oxygen and she started developing significant shortness of breath. The patient needed assistance in order to get her oxygen readily available. I will reach out to her [employer] company again, Jenna, to see about getting her portable oxygen concentrator. The patient also has been using the oxygen while sleeping. He has been affecting beneficial. She continues use her respiratory medicine. She still continues to use prednisone. Still has episodes of difficulty breathing. Will go ahead and request pulmonary function studies. She did have a blood gas done today. Her CO2 continues to be stable 44 mmHg. The patient continues to also be anemic. Has significant iron-deficiency anemia and she needs to follow-up with her primary care doctor. The patient will start taking iron. She may need IV iron if her numbers are getting any better. Indeed her significant anemia as making her respiratory symptoms worse since she has advanced COPD. 03/10/2024 the patient is here for a pulmonary follow-up visit. The patient is happy she did get a portable oxygen concentrator she has been having better portability outside of the home which is reassuring. She is here with a daughter who is and this also has resulted in significant amount of ja in the family. She needs to get vaccinated for RSV. She also will get the flu shot. She is up-to-date with the Tdap. From a respiratory status she is tolerating the theophylline. We did request a theophylline level but could not be run. Will go ahead and request blood work including the theophylline level and also her arch stores. The patient did have a CT scan of the chest which was personally by me. Appears that she has a larger left-sided nodular density of the thyroid. She is going to have an ultrasound done by her primary care doctor which is reassuring. In the meantime will get blood work including thyroid function studies. Especially with significant symptoms. The patient will also continue respiratory therapy. We did talk about again lung volume reduction intervention. She will consider this further after her grand son is born. [facility] Medical History (Updated 03/10/24 @ 23:01 by Hugo Cobb MD) Thyroid nodule Iron deficiency anemia Chronic low back pain Kidney donor Depression Hypertension Migraines On supplemental oxygen therapy Personal history of nicotine dependence Pulmonary nodules Hiatal hernia Steroid dependent Chronic respiratory failure COPD (chronic obstructive pulmonary disease) Surgical History (Updated 11/03/21 @ 14:01 by Paulina Patterson PA-C) History of nasal surgery History of kidney donation Social History (Updated 11/03/21 @ 14:11 by Paulina Patterson PA-C) Patient Tobacco Use Status: Former Tobacco user Tobacco use type: Cigarette Years Smoked: onset 18, 1/2-1ppd x 35yrs, 25pyh, quit 2014 Review of Systems Const Denies fever(s) and Reports weakness Eyes Reports change in vision ENT Denies change in voice Card Denies palpitations, Reports dyspnea and Reports dyspnea on exertion Resp Denies chest congestion, Reports cough, Denies hemoptysis, Reports dyspnea, Reports dyspnea on exertion and Reports wheezing GI Reports no additional complaints Musc Reports abnormal gait and Reports back pain Skin/Breast Denies rash Neuro Reports abnormal gait and Reports weakness Endo Denies palpitations Aller/Immun Reports wheezing Physical Exam Vital Signs: Last Vital Signs Pulse 83 03/10/24 15:37 Pulse Ox 97 03/10/24 15:37 Oxygen Delivery Method Room Air 03/10/24 15:37 BMI result Body Mass Index 29.2 Const General: alert HEENT Head: Yes normocephalic Neck Neck: Yes normal visual inspection, Yes full ROM and Yes no lymphadenopathy Chest Chest palpation & inspection: normal inspection of the chest Resp Effort & Inspection: normal respiratory effort Auscultation: no wheezes and diminished lung sounds Cardio Rate: regular rate Rhythm: regular rhythm Heart sounds: S1 normal heart sound present and S2 normal heart sound present GI Palpation (GI): Soft to palpation and nontender Auscultation: normal bowel sounds Skin General skin exam: no rashes or lesions noted Extrem General: Yes no clubbing, cyanosis or edema Results Reviewed Results Reviewed: [address] [address] [address] Scan Report Signed Patient: Marielle Das MR#: [id number] : 1965 Acct:[id number] Age/Sex: 58 / F ADM Date: 02/12/24 Loc: .CT Attending Dr: Paulina Patterson PA-C Ordering Physician: Paulina Patterson PA-C Date of Service: 02/12/24 Procedure(s): CT lung screening Accession Number(s): [id number] cc: Isamar Jaime MD; Paulina Patterson PA-C~ EXAMINATION: CT LUNG SCREENING CLINICAL INFORMATION: Personal history of nicotine dependence. The patient has a 35 pack-year history of smoking, having quit 9 years ago. COMPARISON: CT chest 11/03/2021. TECHNIQUE: Multidetector volumetric CT imaging of the chest is performed on a Siemens SOMATOM Perspective scanner without contrast using low dose technique. Additional 2D coronal and sagittal reformatted images and axial 3D maximum intensity projection (MIP) images are generated on the CT workstation. This CT examination was performed using dose optimization techniques as appropriate, variously including the following: *Automated exposure control *Adjustment of mA and/or kV according to patient size (this includes techniques or standardized protocols for targeted exams where dose is matched to indication/reason for exam; i.e. extremities or head) *Use of iterative reconstruction technique TOTAL EXAM DLP: 96 mGy-cm. CTDIvol: 2.38 mGy. FINDINGS: PULMONARY NODULES: Tree-in-bud nodularity and scarring is again seen at the right lung apex. 3 mm pleural-based right upper lobe lymph node sitting on the minor fissure, unchanged (5:265 compare prior 5:251. Again seen is an area of marked mucus plugging in the right upper lobe (5:230 compare prior 5:212). No new, increasing-sized or concerning pulmonary nodules are seen. LUNGS: Lungs bilaterally symmetrically expanded. There is marked emphysema. Eblq-ow-[id number] bronchial thickening is present without bronchiectasis. No effusion or pneumothorax. Central airways patent. MEDIASTINUM: No mediastinal, hilar or axillary adenopathy or free fluid collection. CORONARY ARTERY CALCIFICATION: Mild. THYROID GLAND: The left lobe of the thyroid is enlarged and hypoattenuating. A 2.5 cm mass cannot be excluded in this area. Dedicated thyroid ultrasound recommended. CARDIOVASCULAR STRUCTURES: Aorta prominent at 3.7 cm but not aneurysmal. heart size normal. No pericardial effusion. CHEST WALL/AXILLA: Unremarkable. UPPER ABDOMEN: Included portions of the solid organs in the upper abdomen unremarkable on noncontrast imaging. The left kidney is not seen and may be absent. OSSEOUS STRUCTURES: No suspicious focal findings. CT/CT lung screening IMPRESSION: 1. No evidence of pulmonary malignancy. 2. Marked emphysema. 3. Enlarged left lobe of the thyroid with possible 2.5 cm mass. Dedicated thyroid ultrasound recommended. 4. Other incidental findings as described above. 5. Lung-RADS Category S Negative. There are no clinically significant, or potentially clinically significant, findings not related to the lungs requiring urgent additional evaluation. ASSESSMENT: 1. Lung-RADS Category 2: Benign appearance or behavior of nodules. N/A RECOMMENDATION: Continued routine annual low-dose CT lung screening in 1 year is recommended. An order for CT CHEST LOW DOSE CANCER SCREENING ([id number]) can be placed. Dictated By: Larry Dowling MD Signed By: <Electronically signed by Larry Dowling MD in OV> 03/05/24 2343 DD/ 1533 TD/TT: Ham Rolling Machine Operator: HASEEB Assessment & Plan Assessment & Plan (1) COPD (chronic obstructive pulmonary disease): Code(s): J44.9 - Chronic obstructive pulmonary disease, unspecified Category: Medical Qualifiers: COPD type: emphysema Emphysema type: centrilobular Qualified Code(s): J43.2 - Centrilobular emphysema (2) Chronic respiratory failure: Code(s): J96.10 - Chronic respiratory failure, unspecified whether with hypoxia or hypercapnia Category: Medical Qualifiers: Respiratory failure complication: hypoxia Qualified Code(s): J96.11 - Chronic respiratory failure with hypoxia (3) Steroid dependent: Code(s): F19.20 - Other psychoactive substance dependence, uncomplicated Category: Medical (4) Hiatal hernia: Code(s): K44.9 - Diaphragmatic hernia without obstruction or gangrene Category: Medical (5) Pulmonary nodules: Code(s): R91.8 - Other nonspecific abnormal finding of lung field Category: Medical (6) Iron deficiency anemia: Code(s): D50.9 - Iron deficiency anemia, unspecified Category: Medical Qualifiers: Iron deficiency anemia type: unspecified iron deficiency Qualified Code(s): D50.9 - Iron deficiency anemia, unspecified (7) Thyroid nodule: Code(s): E04.1 - Nontoxic single thyroid nodule Category: Medical (8) Enlarged thyroid gland: Comment: (Enlarged left lobe ofthyroid with possible 2.5 cm mass - on 02/12/24 LDCT) Code(s): E04.9 - Nontoxic goiter, unspecified Category: Medical Plan continue oxygen supplementation with sleep and activity : 3L pulse oxygen with activity. Needs better portability outside of the home. She needs a battery powered portable oxygen concentrator for improved portability outside of the house. Will use 2L oxygen while sleeping. continue symbicort short-acting beta agonist as needed bloodwork prednisone 5 mg daily continue theophylline 400mg will come in to recheck levels consider lung volume reduction interventions. This will require a referral to [place] or [facility]. pulmonary rehabilitation. On line will be sufficient she is already exercising at home on her treadmill start oral Iron supplementation, may need IV iron if no better. Will f/u with PCP regarding her Iron deficiency anemia PFTs LDCT Follow-up in 3-4 months Orders: Orders Phosphorus Today D50.9 - Iron deficiency anemia, unspecified, E04.1 - Nontoxic single thyroid nodule, J43.2 - Centrilobular emphysema Basic Metabolic Panel Today D50.9 - Iron deficiency anemia, unspecified, E04.1 - Nontoxic single thyroid nodule, J43.2 - Centrilobular emphysema TSH reflex Free T4 Today D50.9 - Iron deficiency anemia, unspecified, E04.1 - Nontoxic single thyroid nodule, J43.2 - Centrilobular emphysema Ferritin Today D50.9 - Iron deficiency anemia, unspecified, E04.1 - Nontoxic single thyroid nodule, J43.2 - Centrilobular emphysema IRON PROFILE Today D50.9 - Iron deficiency anemia, unspecified, E04.1 - Nontoxic single thyroid nodule, J43.2 - Centrilobular emphysema Vitamin D 25-OH (D2 and D3) Today D50.9 - Iron deficiency anemia, unspecified, E04.1 - Nontoxic single thyroid nodule, J43.2 - Centrilobular emphysema Theophylline Today D50.9 - Iron deficiency anemia, unspecified, E04.1 - Nontoxic single thyroid nodule, J43.2 - Centrilobular emphysema Complete Blood Count Auto Diff Today D50.9 - Iron deficiency anemia, unspecified Coding Level of Care Code Est Pt Level 4 (46161) Complex EM visit Add On G2211 Diagnoses Centrilobular emphysema J43.2 COPD type: emphysema Emphysema type: centrilobular Chronic respiratory failure with hypoxia J96.11 Respiratory failure complication: hypoxia Steroid dependent F19.20 Hiatal hernia K44.9 Pulmonary nodules R91.8 Iron deficiency anemia, unspecified iron deficiency anemia type D50.9 Iron deficiency anemia type: unspecified iron deficiency Thyroid nodule E04.1 Enlarged thyroid gland E04.9 Time Spent (min) 17
== END 2024-03-10 15:58 | disposition home or self-care (01) ==
PROVIDERS: PCP Internal Medicine; Visit Provider Hospitalist
DX: J43.2 Centrilobular emphysema (principal); J96.11 Chronic respiratory failure with hypoxia; F19.20 Other psychoactive substance dependence, uncomplicated; K44.9 Diaphragmatic hernia without obstruction or gangrene; R91.8 Other nonspecific abnormal finding of lung field; D50.9 Iron deficiency anemia, unspecified; E04.1 Nontoxic single thyroid nodule; E04.9 Nontoxic goiter, unspecified
CPT/HCPCS: 99214; G2211

== ENCOUNTER 2024-03-14 14:05 | Outpatient (REF) | payer OTHER, SELFPAY ==
--- NOTE | 2024-03-14 13:30 | PFT_ITS ---
Flows: FEV1: 34 % of predicted at 0.85 L FVC: 67 % of predicted at 2.12 L FEV1/FVC: 40 % Bronchodilator response: Absent Volumes: Patient unable to perform lung volumes maneuvers. Diffusion capacity: Moderately decreased Impression: Very severe obstructive ventilatory defect with no bronchodilator response. Patient unable to perform lung volume maneuvers. Decreased diffusion capacity suggests emphysema. MTDD
== END 2024-03-14 14:06 | disposition home or self-care (01) ==
LOC: HO.RESP 14:05
PROVIDERS: PCP Internal Medicine; Visit Provider Hospitalist
DX: J43.2 Centrilobular emphysema (principal)
CPT/HCPCS: 94010; 94640; 94727; 94729

== ENCOUNTER 2024-06-29 15:27 | Outpatient (AMB) | payer OTHER, SELFPAY ==
[2024-06-29 15:30] VITALS: BP 111/68; PULSE 73; O2SAT 96; BMI 28.0
--- NOTE | 2024-06-29 15:30 | MHC.OFFVIS ---
Vital Signs 06/29/24 15:30 Height 5 ft 3 in Weight 158 lb BMI 28.0 BP 111/68 Blood Pressure Location Rt brachial Position Sitting Pulse 73 Pulse Source Doppler Pulse Oximetry (%) 96 Oxygen Delivery Method Nasal Cannula Oxygen Flow Rate 2 Intake Visit Reasons: COPD Allergies clarithromycin [From Biaxin] Allergy (Severe, Verified 03/10/24 15:39) Rash fentanyl Allergy (Severe, Verified 03/10/24 15:39) Agitated Influenza Virus Vaccines Allergy (Severe, Verified 03/10/24 15:39) Fever HPI Comments Details: The patient is a 59-year-old woman with a known history of COPD, chronic respiratory failure on oxygen who apparently has been decompensated from respiratory standpoint. She had been admitted to the hospital and ultimately discharged on palliative care. Subsequently she transition to hospice level of care. However her condition stabilized and she was able to not qualify for hospice and longer. Soft to 2 years hospice was discontinued. She continues to receive help from family. She continues on her oxygen supplementation. The patient continues on her respiratory therapy with good adherence. She has been steroid dependent. At this point will re-evaluate her overall condition. The patient also has a history of tobacco dependency. She now has quit. She has had stable pulmonary nodules in the past. Due to her smoking history she is high risk for malignancy so therefore we will refer her to the lung cancer screening program. 03/09/2022 the patient is here for pulmonary follow-up visit. She continues to struggle with breathing. Significant dyspnea on exertion. She also has lower extremity weakness. She comes in on a wheelchair. She has been using her oxygen. She is upset she could not get the noninvasive ventilator. Unfortunately her insurance company denied it. She at this time will have her undergo a in-lab sleep study in order to monitor her end-tidal CO2 and see if she qualifies for PAP therapy that fashion. She continues use respiratory therapy. She does have partial response to therapy. We did talk about considering the lung volume reduction interventions such as the xephyr valves. She is strongly considering this. However, she would like to wait until next year. The patient needs to start pulmonary rehabilitation. I did provide her information previously about online rehab. 01/10/2023 the patient is here for a pulmonary follow-up visit. She has been about the same. Continues use her oxygen with good effect. She does not leave the house much. A less for doctor's appointments. She continues with respiratory therapy. She does not want to pursue and person pulmonary rehab. Also is not interested in pursuing any tertiary referral to [place]. she continues using prednisone as prescribed. She has been trying to cut down. Based on her chronic use of prednisone she will probably require a small dose daily. With did repeat her alpha-1 antitrypsin DNA swab since she has not had this type of swab in the past. Very unlikely to be positive with multiple alpha-1 testings done previously. 07/18/2023 the patient is here for a pulmonary follow-up visit. The patient has been doing fair. She was taken off the anticholinergics because of the history of glaucoma. She has required multiple interventions for the glaucoma and is still not completely under control. She also has significant cataracts that she needs to deal with afterwards. She has been on the Symbicort in his seems to be effective but not as effective as the Trelegy unfortunately. She is responding well to the theophylline. Therefore will try to increase the theophylline from 300-400 and will check her theophylline levels in the next few weeks. Will also recheck her venous gas and other blood work that is important. The patient will continue with current respiratory therapy. She also continues with her oxygen. The patient is willing to consider the lung volume reduction intervention valves. Only if it can be done locally. In there may be some AE program opening up at [facility]. Will consider that once her eye issues are resolved. The meantime will continue to optimize respiratory therapy and will follow-up in 3 months. 12/26/2023 the patient is here for pulmonary follow-up visit. She continues to have significant shortness of breath. She has been using her oxygen regularly. She has been upset because she does not have a portable oxygen concentrator and therefore has limited portability. She was at her daughter's wedding and she ran out of oxygen and she started developing significant shortness of breath. The patient needed assistance in order to get her oxygen readily available. I will reach out to her [employer] company again, Jenna, to see about getting her portable oxygen concentrator. The patient also has been using the oxygen while sleeping. He has been affecting beneficial. She continues use her respiratory medicine. She still continues to use prednisone. Still has episodes of difficulty breathing. Will go ahead and request pulmonary function studies. She did have a blood gas done today. Her CO2 continues to be stable 44 mmHg. The patient continues to also be anemic. Has significant iron-deficiency anemia and she needs to follow-up with her primary care doctor. The patient will start taking iron. She may need IV iron if her numbers are getting any better. Indeed her significant anemia as making her respiratory symptoms worse since she has advanced COPD. 03/10/2024 the patient is here for a pulmonary follow-up visit. The patient is happy she did get a portable oxygen concentrator she has been having better portability outside of the home which is reassuring. She is here with a daughter who is and this also has resulted in significant amount of ja in the family. She needs to get vaccinated for RSV. She also will get the flu shot. She is up-to-date with the Tdap. From a respiratory status she is tolerating the theophylline. We did request a theophylline level but could not be run. Will go ahead and request blood work including the theophylline level and also her arch stores. The patient did have a CT scan of the chest which was personally by me. Appears that she has a larger left-sided nodular density of the thyroid. She is going to have an ultrasound done by her primary care doctor which is reassuring. In the meantime will get blood work including thyroid function studies. Especially with significant symptoms. The patient will also continue respiratory therapy. We did talk about again lung volume reduction intervention. She will consider this further after her grand son is born. 06/29/2024 the patient is here for a pulmonary follow-up visit. Overall the patient has been doing okay. She is excited about becoming a g a. She continues on the oxygen supplementation with good effect. She continues to start tolerate the theophylline well. She had blood work demonstrating stabilization of her previous electrolyte derangements. She has been cutting down the prednisone because she has had elevated sugars at risk for diabetes. She is down to 2.5 mg daily. She is going to slowly wean by 0.5 mg every week or 2 to see if she can come down to 0. When she is on 0 she should get cortisol levels to see if her adrenal glands are starting to function appropriately. We did look at her CT scan of the chest that she had over the summer to the lung cancer screening program and was stable. 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 But kidney function is perfectly normal which is reassuring. She is still having significant issues with daytime drowsiness now. She is falling asleep all the time. She tried modafinil in the past and we can try small dose now. Her last blood gas was reassuring so I do not suspect that is CO2 related. In addition to that it may be related to coming off the prednisone. [facility] Medical History (Updated 03/10/24 @ 23:01 by Hugo Cobb MD) Thyroid nodule Iron deficiency anemia Chronic low back pain Kidney donor Depression Hypertension Migraines On supplemental oxygen therapy Personal history of nicotine dependence Pulmonary nodules Hiatal hernia Steroid dependent Chronic respiratory failure COPD (chronic obstructive pulmonary disease) Surgical History (Updated 11/03/21 @ 14:01 by Paulina Patterson PA-C) History of nasal surgery History of kidney donation Social History (Updated 11/03/21 @ 14:11 by Paulina Patterson PA-C) Patient Tobacco Use Status: Former Tobacco user Tobacco use type: Cigarette Years Smoked: onset 18, 1/2-1ppd x 35yrs, 25pyh, quit 2014 Review of Systems Const Denies fever(s) and Reports weakness Eyes Reports change in vision ENT Denies change in voice Card Denies palpitations, Reports dyspnea and Reports dyspnea on exertion Resp Denies chest congestion, Reports cough, Denies hemoptysis, Reports dyspnea, Reports dyspnea on exertion and Reports wheezing GI Reports no additional complaints Musc Reports abnormal gait and Reports back pain Skin/Breast Denies rash Neuro Reports abnormal gait and Reports weakness Endo Denies palpitations Aller/Immun Reports wheezing Physical Exam Vital Signs: Last Vital Signs Pulse 73 06/29/24 15:30 BP 111/68 06/29/24 15:30 Pulse Ox 96 06/29/24 15:30 Oxygen Delivery Method Nasal Cannula 06/29/24 15:30 Oxygen Flow Rate 2 06/29/24 15:30 BMI result Body Mass Index 28.0 Const General: alert HEENT Head: Yes normocephalic Neck Neck: Yes normal visual inspection, Yes full ROM and Yes no lymphadenopathy Chest Chest palpation & inspection: normal inspection of the chest Resp Effort & Inspection: normal respiratory effort Auscultation: no wheezes and diminished lung sounds Cardio Rate: regular rate Rhythm: regular rhythm Heart sounds: S1 normal heart sound present and S2 normal heart sound present GI Palpation (GI): Soft to palpation and nontender Auscultation: normal bowel sounds Skin General skin exam: no rashes or lesions noted Extrem General: Yes no clubbing, cyanosis or edema Assessment & Plan Assessment & Plan (1) COPD (chronic obstructive pulmonary disease): Code(s): J44.9 - Chronic obstructive pulmonary disease, unspecified Category: Medical Qualifiers: COPD type: emphysema Emphysema type: centrilobular Qualified Code(s): J43.2 - Centrilobular emphysema (2) Chronic respiratory failure: Code(s): J96.10 - Chronic respiratory failure, unspecified whether with hypoxia or hypercapnia Category: Medical Qualifiers: Respiratory failure complication: hypoxia Qualified Code(s): J96.11 - Chronic respiratory failure with hypoxia (3) Steroid dependent: Code(s): F19.20 - Other psychoactive substance dependence, uncomplicated Category: Medical (4) Hiatal hernia: Code(s): K44.9 - Diaphragmatic hernia without obstruction or gangrene Category: Medical (5) Pulmonary nodules: Code(s): R91.8 - Other nonspecific abnormal finding of lung field Category: Medical (6) Iron deficiency anemia: Code(s): D50.9 - Iron deficiency anemia, unspecified Category: Medical Qualifiers: Iron deficiency anemia type: unspecified iron deficiency Qualified Code(s): D50.9 - Iron deficiency anemia, unspecified (7) Thyroid nodule: Code(s): E04.1 - Nontoxic single thyroid nodule Category: Medical (8) Enlarged thyroid gland: Comment: (Enlarged left lobe ofthyroid with possible 2.5 cm mass - on 02/12/24 LDCT) Code(s): E04.9 - Nontoxic goiter, unspecified Category: Medical Plan continue oxygen supplementation with sleep and activity : 3L pulse oxygen with activity. Needs better portability outside of the home. She needs a battery powered portable oxygen concentrator for improved portability outside of the house. Will use 2L oxygen while sleeping. continue symbicort short-acting beta agonist as needed prednisone 2.5 mg daily->taper slowly by .5 start Modafinil 100mg AM continue theophylline 400mg will come in to recheck levels consider lung volume reduction interventions. This will require a referral to [place] or [facility]. pulmonary rehabilitation. On line will be sufficient she is already exercising at home on her treadmill LDCT Follow-up in 3-4 months Orders: Orders Theophylline Today J43.2 - Centrilobular emphysema Medications: New modafinil 100 mg PO DAILY 30 tabs 3RF 30 days Coding Level of Care Code Est Pt Level 4 (50063) Complex EM visit Add On G2211 Diagnoses Centrilobular emphysema J43.2 COPD type: emphysema Emphysema type: centrilobular Chronic respiratory failure with hypoxia J96.11 Respiratory failure complication: hypoxia Steroid dependent F19.20 Hiatal hernia K44.9 Pulmonary nodules R91.8 Iron deficiency anemia, unspecified iron deficiency anemia type D50.9 Iron deficiency anemia type: unspecified iron deficiency Thyroid nodule E04.1 Enlarged thyroid gland E04.9 Time Spent (min) 20
== END 2024-06-29 16:11 | disposition home or self-care (01) ==
PROVIDERS: PCP Internal Medicine; Visit Provider Hospitalist
DX: J43.2 Centrilobular emphysema (principal); J96.11 Chronic respiratory failure with hypoxia; F19.20 Other psychoactive substance dependence, uncomplicated; K44.9 Diaphragmatic hernia without obstruction or gangrene; R91.8 Other nonspecific abnormal finding of lung field; D50.9 Iron deficiency anemia, unspecified; E04.1 Nontoxic single thyroid nodule; E04.9 Nontoxic goiter, unspecified
CPT/HCPCS: 99214; G2211

== ENCOUNTER → 2024-06-29 15:27 | Outpatient (BNVA) | payer OTHER, SELFPAY | PROVIDERS: PCP Internal Medicine; Visit Provider Hospitalist | DX: J43.2 Centrilobular emphysema (principal); J96.11 Chronic respiratory failure with hypoxia; R91.8 Other nonspecific abnormal finding of lung field; D50.9 Iron deficiency anemia, unspecified; E04.1 Nontoxic single thyroid nodule; K44.9 Diaphragmatic hernia without obstruction or gangrene; Z79.52 Long term (current) use of systemic steroids; Z99.81 Dependence on supplemental oxygen | CPT/HCPCS: 99212 ==

== ENCOUNTER 2024-10-26 15:30 | Outpatient (AMB) | payer OTHER, SELFPAY ==
[2024-10-26 15:36] VITALS: BP 100/64; PULSE 66; O2SAT 95; BMI 25.8
--- NOTE | 2024-10-26 15:36 | A.OFFVIS_ITS ---
Vital Signs 10/26/24 15:36 Height 5 ft 3 in Weight 145 lb 8.081 oz BMI 25.8 BP 100/64 Blood Pressure Location Lt brachial Position Sitting Pulse 66 Pulse Source Pulse Oximeter Pulse Oximetry (%) 95 Oxygen Delivery Method Room Air Intake Visit Reasons: COPD Allergies clarithromycin [From Biaxin] Allergy (Severe, Verified 10/26/24 15:39) Rash fentanyl Allergy (Severe, Verified 10/26/24 15:39) Agitated Influenza Virus Vaccines Allergy (Severe, Verified 10/26/24 15:39) Fever HPI Comments Details: The patient is a 59-year-old woman with a known history of COPD, chronic respiratory failure on oxygen who apparently has been decompensated from respiratory standpoint. She had been admitted to the hospital and ultimately discharged on palliative care. Subsequently she transition to hospice level of care. However her condition stabilized and she was able to not qualify for hospice and longer. Soft to 2 years hospice was discontinued. She continues to receive help from family. She continues on her oxygen supplementation. The patient continues on her respiratory therapy with good adherence. She has been steroid dependent. At this point will re-evaluate her overall condition. The patient also has a history of tobacco dependency. She now has quit. She has had stable pulmonary nodules in the past. Due to her smoking history she is high risk for malignancy so therefore we will refer her to the lung cancer screening program. 03/09/2022 the patient is here for pulmonary follow-up visit. She continues to struggle with breathing. Significant dyspnea on exertion. She also has lower extremity weakness. She comes in on a wheelchair. She has been using her oxygen. She is upset she could not get the noninvasive ventilator. Unfortunately her insurance company denied it. She at this time will have her undergo a in-lab sleep study in order to monitor her end-tidal CO2 and see if she qualifies for PAP therapy that fashion. She continues use respiratory therapy. She does have partial response to therapy. We did talk about considering the lung volume reduction interventions such as the xephyr valves. She is strongly considering this. However, she would like to wait until next year. The patient needs to start pulmonary rehabilitation. I did provide her information previously about online rehab. 01/10/2023 the patient is here for a pulmonary follow-up visit. She has been about the same. Continues use her oxygen with good effect. She does not leave the house much. A less for doctor's appointments. She continues with respiratory therapy. She does not want to pursue and person pulmonary rehab. Also is not interested in pursuing any tertiary referral to [facility]. she con tinues using prednisone as prescribed. She has been trying to cut down. Based on her chronic use of prednisone she will probably require a small dose daily. With did repeat her alpha-1 antitrypsin DNA swab since she has not had this type of swab in the past. Very unlikely to be positive with multiple alpha-1 testings done previously. 07/18/2023 the patient is here for a pulmonary follow-up visit. The patient has been doing fair. She was taken off the anticholinergics because of the history of glaucoma. She has required multiple interventions for the glaucoma and is still not completely under control. She also has significant cataracts that she needs to deal with afterwards. She has been on the Symbicort in his seems to be effective but not as effective as the Trelegy unfortunately. She is responding well to the theophylline. Therefore will try to increase the theophylline from 300-400 and will check her theophylline levels in the next few weeks. Will also recheck her venous gas and other blood work that is important. The patient will continue with current respiratory therapy. She also continues with her oxygen. The patient is willing to consider the lung volume reduction intervention valves. Only if it can be done locally. In there may be some AE program opening up at [facility]. Will consider that once her eye issues are resolved. The meantime will continue to optimize respiratory therapy and will follow-up in 3 months. 12/26/2023 the patient is here for pulmonary follow-up visit. She continues to have significant shortness of breath. She has been using her oxygen regularly. She has been upset because she does not have a portable oxygen concentrator and therefore has limited portability. She was at her daughter's wedding and she ran out of oxygen and she started developing significant shortness of breath. The patient needed assistance in order to get her oxygen readily available. I will reach out to her [employer] company again, [employer], to see about getting her portable oxygen concentrator. The patient also has been using the oxygen while sleeping. He has been affecting beneficial. She continues use her respiratory medicine. She still continues to use prednisone. Still has episodes of difficulty breathing. Will go ahead and request pulmonary function studies. She did have a blood gas done today. Her CO2 continues to be stable 44 mmHg. T he patient continues to also be anemic. Has significant iron-deficiency anemia and she needs to follow-up with her primary care doctor. The patient will start taking iron. She may need IV iron if her numbers are getting any better. Indeed her significant anemia as making her respiratory symptoms worse since she has advanced COPD. 03/10/2024 the patient is here for a pulmonary follow-up visit. The patient is happy she did get a portable oxygen concentrator she has been having better portability outside of the home which is reassuring. She is here with a daughter who is and this also has resulted in significant amount of ja in the family. She needs to get vaccinated for RSV. She also will get the flu shot. She is up-to-date with the Tdap. From a respiratory status she is tolerating the theophylline. We did request a theophylline level but could not be run. Will go ahead and request blood work including the theophylline level and also her arch stores. The patient did have a CT scan of the chest which was personally by me. Appears that she has a larger left-sided nodular density of the thyroid. She is going to have an ultrasound done by her primary care doctor which is reassuring. In the meantime will get blood work including thyroid function studies. Especially with significant symptoms. The patient will also continue respiratory therapy. We did talk about again lung volume reduction intervention. She will consider this further after her grand son is born. 06/29/2024 the patient is here for a pulmonary follow-up visit. Overall the patient has been doing okay. She is excited about becoming a g a. She continues on the oxygen supplementation with good effect. She continues to start tolerate the theophylline well. She had blood work demonstrating stabilization of her previous electrolyte derangements. She has been cutting down the prednisone because she has had elevated sugars at risk for diabetes. She is down to 2.5 mg daily. She is going to slowly wean by 0.5 mg every week or 2 to see if she can come down to 0. When she is on 0 she should get cortisol levels to see if her adrenal glands are starting to function appropriately. We did look at her CT scan of the chest that she had over the summer to the lung cancer screening program and was stable. 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 But kidney function is perfectly normal which is reassuring. She is still having significant issues with daytime drowsiness now. She is falling asleep all the time. She tried modafinil in the past and we can try small dose now. Her last blood gas was reassuring so I do not suspect that is CO2 related. In addition to that it may be related to coming off the prednisone. 10/26/2024 the patient is here for a pulmonary follow-up visit. The patient overall has been doing a lot better. She is tolerating her respiratory medications well. She denies any adverse effects at this time. She is able to cut down the prednisone down to 1 mg daily. She is wondering she can cut down to 0.5 mg daily although is difficult to cut the tablets. Therefore she can try taking 1 tablet every other day for now and extending to 3 times a week whenever she is ready. Whenever she is off completely she can have cortisol level was checked to see if she has any evidence of any adrenal insufficiency. However, based on the fact that she is doing well on such as small doses unlikely that she has any evidence of any adrenal insufficiency at this time. The patient did not try the modafinil because it was never covered and that is reassuring because that is 1 less medication that she is taking. Will go ahead and recheck her theophylline levels to make sure that she is adequately treated. The patient also needs to start exercising more and would love for her to practice her Rosa M or airway resistance therapy in order to strengthen her respiratory muscles and her capacity. Her lung cancer screening CT scan will be done sometime in the summer 5. Will plan to follow-up sometime after that. If she has any issues prior to that she will call for an earlier assessment. [facility] Medical History (Updated 03/10/24 @ 23:01 by Hugo Cobb MD) Thyroid nodule Iron deficiency anemia Chronic low back pain Kidney donor Depression Hypertension Migraines On supplemental oxygen therapy Personal history of nicotine dependence Pulmonary nodules Hiatal hernia Steroid dependent Chronic respiratory failure COPD (chronic obstructive pulmonary disease) Surgical History (Updated 11/03/21 @ 14:01 by Paulina Patterson PA-C) History of nasal surgery History of kidney donation Social History Patient Tobacco Use Status: Former Tobacco user Tobacco use type: Cigarette Years Smoked: onset 18, 1/2-1ppd x 35yrs, 25pyh, quit 2014 Review of Systems Const Denies fever(s) and Reports weakness Eyes Reports change in vision ENT Denies change in voice Card Denies palpitations, Reports dyspnea and Reports dyspnea on exertion Resp Denies chest congestion, Reports cough, Denies hemoptysis, Reports dyspnea, Reports dyspnea on exertion and Reports wheezing GI Reports no additional complaints Musc Reports abnormal gait and Reports back pain Skin/Breast Denies rash Neuro Reports abnormal gait and Reports weakness Endo Denies palpitations Aller/Immun Reports wheezing Physical Exam Vital Signs: Last Vital Signs Pulse 66 10/26/24 15:36 BP 100/64 10/26/24 15:36 Pulse Ox 95 10/26/24 15:36 Oxygen Delivery Method Room Air 10/26/24 15:36 BMI result Body Mass Index 25.8 Const General: alert HEENT Head: Yes normocephalic Neck Neck: Yes normal visual inspection, Yes full ROM and Yes no lymphadenopathy Chest Chest palpation & inspection: normal inspection of the chest Resp Effort & Inspection: normal respiratory effort Auscultation: no wheezes and diminished lung sounds Cardio Rate: regular rate Rhythm: regular rhythm Heart sounds: S1 normal heart sound present and S2 normal heart sound present GI Palpation (GI): Soft to palpation and nontender Auscultation: normal bowel sounds Skin General skin exam: no rashes or lesions noted Extrem General: Yes no clubbing, cyanosis or edema Assessment & Plan Assessment & Plan (1) COPD (chronic obstructive pulmonary disease): Code(s): J44.9 - Chronic obstructive pulmonary disease, unspecified Category: Medical Qualifiers: COPD type: emphysema Emphysema type: centrilobular Qualified Code(s): J43.2 - Centrilobular emphysema (2) Chronic respiratory failure: Code(s): J96.10 - Chronic respiratory failure, unspecified whether with hypoxia or hypercapnia Category: Medical Qualifiers: Respiratory failure complication: hypoxia Qualified Code(s): J96.11 - Chronic respiratory failure with hypoxia (3) Steroid dependent: Code(s): F19.20 - Other psychoactive substance dependence, uncomplicated Category: Medical (4) Hiatal hernia: Code(s): K44.9 - Diaphragmatic hernia without obstruction or gangrene Category: Medical (5) Pulmonary nodules: Code(s): R91.8 - Other nonspecific abnormal finding of lung field Category: Medical (6) Iron deficiency anemia: Code(s): D50.9 - Iron deficiency anemia, unspecified Category: Medical Qualifiers: Iron deficiency anemia type: unspecified iron deficiency Qualified Code(s): D50.9 - Iron deficiency anemia, unspecified (7) Thyroid nodule: Code(s): E04.1 - Nontoxic single thyroid nodule Category: Medical (8) Enlarged thyroid gland: Comment: (Enlarged left lobe ofthyroid with possible 2.5 cm mass - on 02/12/24 LDCT) Code(s): E04.9 - Nontoxic goiter, unspecified Category: Medical Plan continue oxygen supplementation with sleep and activity : 3L pulse oxygen with activity. Battery powered portable oxygen concentrator for improved portability outside of the house. Will use 2L oxygen while sleeping. continue symbicort short-acting beta agonist as needed prednisone 1mg -->every other day continue theophylline 400mg will come in to recheck levels consider lung volume reduction interventions. This will require a referral to [facility] or [facility]. pulmonary rehabilitation. On line will be sufficient she is already exercising at home on her treadmill LDCT Follow-up in 3-4 months Orders: Orders Basic Metabolic Panel Today J43.2 - Centrilobular emphysema Complete Blood Count Auto Diff Today J43.2 - Centrilobular emphysema Theophylline Today J43.2 - Centrilobular emphysema Medications: New nystatin swish and swallow 2.5 mL PO TID 105 mL 5RF 14 days Coding Level of Care Code Est Pt Level 4 (83180) Diagnoses Centrilobular emphysema J43.2 COPD type: emphysema Emphysema type: centrilobular Chronic respiratory failure with hypoxia J96.11 Respiratory failure complication: hypoxia Steroid dependent F19.20 Hiatal hernia K44.9 Pulmonary nodules R91.8 Iron deficiency anemia, unspecified iron deficiency anemia type D50.9 Iron deficiency anemia type: unspecified iron deficiency Thyroid nodule E04.1 Enlarged thyroid gland E04.9 Time Spent (min) 16
--- OUTSIDE RECORDS SUMMARY | 2024-10-26 18:01 | XMS_ITS | Data Portability ---
Author Organization [facility] [employer] [facility] [place] [facility] Address [address] [place] [phone] Care Team Providers Care Coach Cleaner Name Role Phone [facility] Referring Provider Assessment No assessment recorded. Plan of Treatment Reminders Order Date Submit Date Provider Last Modified By Organization Details Last Modified Time Details Appointments None recorded. Lab cmp, whole blood + maurice [address] [facility], [address] [place] [address], [place], [phone], 3 11:14:19 Referral None recorded. Procedures None recorded. Surgeries None recorded. Imaging None recorded. Medication Orders None recorded. Patient TargetsNo targets recorded. Patient InstructionsNo instructions recorded. Reason for Referral None Reported. Results Created Date Observation Date Name Description Value Unit Range Abnormal Flag Note LastModifiedBy Organization Detail LastModifiedTime Result Notes None recorded. Medical Equipment None Reported. Allergies Allergen ID Allergen Name Allergen Category Reaction Reaction Severity Criticality Documentation Date Start Date Code Code System Note Provider Name and Address Organization Details Recorded Time 8814 fentanyl medicatio n Not available Not available Not available 06/09/2024 4337 RxNorm Not Available [facility] - production 4 03:46:59 Medications Name Sig Start Date Stop Date Status Note LastModified by Organization Details LastModified Time carvedilol 25 mg tablet TAKE 1 TABLET BY MOUTH TWICE DAILY active Not Available Not Available No t Available prednisone 10 mg tablet TAKE 2 TABLETS BY MOUTH DAILY active Not Available Not Available No t Available gabapentin 600 mg tablet TAKE 1 TABLET BY MOUTH THREE TIMES DAILY active Not Available Not Available No t Available albuterol sulfate 2.5 mg/3 mL (0.083 %) solution for nebulization INHALE 3ML BY MOUTH AND INTO THE LUNGS EVERY 4-6 HOURS NEEDED FOR SHORTNESS OF BREATH OR WHEEZING FOR 30 DAYS active Not Available Not Available No t Available morphine concentrate 100 mg/5 mL (20 mg/mL) oral solution active Not Available Not Availabl e Not Available lisinopril 20 mg tablet TAKE 1 TABLET BY MOUTH TWICE DAILY active Not Available Not Available No t Available prednisone 5 mg tablet TAKE 2 TABLETS BY MOUTH DAILY active Not Available Not Available No t Available acetazolamide 250 mg tablet TAKE 1 TABLET BY MOUTH THREE TIMES DAILY active Not Available Not Available No t Available tramadol 50 mg tablet TAKE 2 TABLETS BY MOUTH EVERY 8 HOURS NEEDED FOR PAIN active Not Available Not Available No t Available spironolacton e 25 mg tablet TAKE 1 TABLET BY MOUTH DAILY LABS AND APPOINTMEN T. DUE BEFORE FUTURE REFILLS active Not Available Not Available No t Available theophylline ER 300 mg tablet,extend ed release,12 hr TAKE 1 TABLET BY MOUTH EVERY 12 HOURS active Not Available Not Available No t Available prednisolone acetate 1 % eye drops,suspens ion SHAKE LIQUID AND INSTILL 1 DROP IN RIGHT EYE FOUR TIMES DAILY FOR 4 DAYS THEN STOP active Not Available Not Available No t Available lorazepam 0.5 mg tablet TAKE 1 TABLET BY MOUTH TWICE DAILY NEEDED FOR ANXIETY active Not Available Not Available No t Available methocarbamol 750 mg tablet TAKE 1 TABLET BY MOUTH THREE TIMES DAILY FOR 14 DAYS active Not Available Not Available No t Available prednisone 1 mg tablet TAKE 4 TABLETS BY MOUTH DAILY active Not Available Not Available No t Available mirtazapine 30 mg tablet TAKE 1 TABLET BY MOUTH DAILY AT BEDTIME LABS AND APPOINTMEN T. DUE BEFORE FUTURE REFILLS active Not Available Not Available No t Available butalbital-as pirin-caffein e 50 mg-325 mg-40 mg capsule TAKE 2 CAPSULES BY MOUTH EVERY 6 HOURS NEEDED FOR PAIN TAKE ONLY NEEDED WITH FOOD. NO MORE THAN 6 CAPSULES DAILY active Not Available Not Available No t Available omeprazole 20 mg capsule,delay ed release TAKE 1 CAPSULE BY MOUTH DAILY active Not Available Not Available No t Available montelukast 10 mg tablet TAKE 1 TABLET BY MOUTH EVERY DAY active Not Available Not Available No t Available albuterol sulfate HFA 90 mcg/actuation aerosol inhaler INHALE 2 PUFFS BY MOUTH EVERY 6 HOURS NEEDED FOR SHORTNESS OF BREATH OR WHEEZING active Not Available Not Available No t Available dicyclomine 10 mg capsule TAKE 1 CAPSULE BY MOUTH FOUR TIMES DAILY FOR 10 DAYS active Not Available Not Available No t Available azithromycin 500 mg tablet active Not Available Not Availabl e Not Available Symbicort 160 mcg-4.5 mcg/actuation HFA aerosol inhaler active Not Available Not Available Not Available brimonidine 0.2 %-timolol 0.5 % eye drops INSTILL 1 DROP IN BOTH EYES TWICE DAILY active Not Available Not Available No t Available Trelegy Ellipta 100 mcg-62.5 mcg-25 mcg powder for inhalation INHALE 1 PUFF BY MOUTH DAILY active Not Available Not Available No t Available Vitals Date Recorded Body temperature Heart rate Body weight Oxygen saturation Oxygen saturation in Arterial blood by Pulse oximetry Inhaled oxygen flow rate Respiratory rate Body weight Respiratory rate Heart rate Body temperature Oxygen saturation Oxygen saturation in Arterial blood by Pulse oximetry Inhaled oxygen flow rate Systolic blood pressure Diastolic blood pressure Systolic blood pressure Diastolic blood pressure Provider Name and Address Organization Details Last Updated DateTime 3 98 [degF] 78 /min 12659.7 2 g 98 % 98 % 3 L/min 18 /min 66774.7 2 g 18 /min 78 /min 98 [degF] 98 % 98 % 3 L/min 102 mm[Hg] 66 mm[Hg] 102 mm[Hg] 66 mm[Hg] Not Available [facility] - production 3 15:38:31 Social History None recorded. Functional Status None recorded. Mental Status None recorded. Family History Nothing Reported. Medical History No medical history recorded. Gynecological HistoryNo gynecological history recorded. Obstetrics History GPAL:G 0 P 0 0 0 0 Past Encounters Encounter ID Performer Location Encounter Start Date Encounter Closed Date Diagnosis/Indication Diagnosis SNOMED-CT Code Diagnosis ICD10 Code Diagnosis Note [id number] Tom Dunne MD [facility] - [facility] [address] [place] [phone] 02/02/2023 14:54:33 02/04/2023 10:10:59 Cramp 16515753 R25.2 Cramps in setting of recently starting Acetazolom annia instead of Spironolac tone s/p glaucoma surgery. Labs c/w TID acetazolao mide (mild hyponaterm ia and metabolic acidosis). K is now within normal limits. Suspect cramps may be related to electrolyt es. Vitals WNL. Advised to call optho on-call with labs results to recommend potentiall y lowering TID dosing of Acetazolam annia Health Concerns Section Related Observation LastModified by Organization Detai ls LastModified Time None Recorded Concern Status LastModified by Organization Details LastModified Time None Recorded Advance Directives Directive None Recorded Payers Encounter Date Sequence Insurance Name Policy Number Policy Johns Covered Member ID Johns Member ID Guarantor Name 02/02/2023 1 [facility] - DOS ON OR AFTER 2022 - DUAL ELIGIBLE - [employer] AND ONE [employer] (MEDICARE REPLACEMENT/ADV ANTAGE - HMO) Marielle Das [id number] Marielle Das Notes Date Note Type Note Provider Name and Address Organization Details Recorded Time 02/02/2023 text/html HPI: 57 y.o. F reports having glaucoma surgery on Sat and 01/28 and 01/29, after which she was started on acetazolamide 250 mg tid by eye doctor for fluid all over my cornea, to drain my eye . She has a follow-up on 10/08. Mbr was previously on spironolactone 25 mg daily, which she has held the past 2 days because she was concerned about electrolyte imbalance on two diuretics, since she only has 1 kidney. She believes last K+=4.9 approx 2 wks ago. Mbr developed muscle spasms in bilat legs and increased EDGE today. She has COPD and is wearing 3L O2 w/ recent sat= 96%. Resps unlabored w/ speech and no audible wheezing or stridor. She denies sob at rest. No new abd distention or BLE edema. Mbr c/o heartburn and wonders if she has esophageal thrush, has been on prednisone recently. She took nystatin swish and swallow and feels this is improving s/sx. Mbr agreed to [facility] eval. She was encouraged to rest and that she can call back 04/03 for any worsening s/sx. PMHx includes kidney donor, acute and chronic resp falure w/ hypoxia, pulm fibrosis, IBS. ..................... ..................... ..................... ..................... ..................... ..................... ............... CRC Nursing Assessment: Comments: CRC RN did not require any additional information to process this visit. ..................... ..................... ..................... ..................... ..................... ..................... ............... Line Closer Note From [place]: Pt presents A@O? 4 . Blossom warm and dry. Pt c/o legs cramps and weakness yesterday. Pt sts feels better today with no complaints. Pt denies CP SOB Fever nausea diarrhea dizziness. Baseline vitals assessed and recorded. Poc blood work. Sodium high at 131 and bicarb high at 18. [facility] [place] and Pt advised to contact tester regulator due to medication she is for glaucoma. Pt has appt on saturday. Pt advised to go to appt . And call tester regulator to see if dosage of med can be reduced. Pt educated on signs that would indicate the ER Line Closer Allergies: Fentanyl ..................... ..................... ..................... ..................... ..................... ..................... ............... Disposition: Fulfilled Tom Dunne MD [address] [facility],[address], [place], [phone], [employer] 02/02/2023 16:50:07 OBGyn Episode No OBEpisode recorded.
--- OUTSIDE RECORDS SUMMARY | 2024-10-26 18:01 | XMS_ITS | Clinical Summary ---
Author Organization [facility] ity Address [address] [place] [address] Care Team Providers Care Residential Collections Name Role Phone Rosales Rios MD Primary Care Provider [phone] Surgical History Surgery Date Site/Laterality Comments NEPHRECTOMY PROCEDURE: HISTORICAL NEPHRECTOMY; COMMENT: donor nephrectomy Medical History Medical History Date Comments Allergic rhinitis 04/09/2017 DX:Allergic rh initis Atony of colon 10/14/2014 DX:Atony of colo n Chronic constipation 10/14/2014 DX:Chronic constipation Chronic obstructive pulmonar y disease (CMS/HCC) 05/23/2017 DX:Chronic obstructive pulmo nary disease (HCC) Chronic respiratory failure with hypoxia (CMS/HCC) 09/04/2017 DX:Chronic respiratory failu re with hypoxia (HCC) Degeneration of intervertebr al disc of lumbar region 08/30/2014 DX:Degeneration of intervert ebral disc of lumbar region Fibromyositis 08/30/2014 DX:Fibromyositis Gastroesophageal reflux disease 01/29/2014 DX:Gastroesophageal reflux disease Headache associated with sex ual activity 02/16/2014 DX:Headache associated with sexual activity Hiatal hernia 10/31/2013 DX:Hiatal hernia Hypertension 10/25/2014 DX:Hypertension Irritable bowel syndrome 09/30/2014 DX:Irri table bowel syndrome Microalbuminuria 02/24/2013 DX:Microalbumin uria Migraine without aura 06/10/2013 DX:Migrain e without aura Solitary pulmonary nodule 08/30/2014 DX:Tara itary pulmonary nodule Supplemental oxygen dependent 09/04/2017 DX :Supplemental oxygen dependent Vitamin D deficiency 03/21/2011 DX:Vitamin D deficiency 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 DX:Kidney donor Social History Tobacco Use Types Packs/Day Years Used Date Smoking Tobacco: Former Cigarettes Smokeless Tobacco: Never Comments Unknown Sex and Gender Information Value Date Recorded Sex Assigned at Not on file Legal Sex Female 9:29 AM EST Gender Identity Not on file Sexual Orientation Not on file Obstetrics History Plan of Treatment Health Maintenance Due Date Last Done Comments Breast Cancer Screening 1965 Cervical Cancer Screening: P ap Smear 02/19/1988 Hepatitis B Vaccines (2 of 3 - 19+ 3-dose series) 09/09/1991 08/12/1991 DTaP,Tdap,and Td Vaccines (2 - Td or Tdap) 08/14/2016 08/14/2006 Pneumococcal Vaccine: 50+ Ye ars (1 of 1 - PCV) 2017 Zoster Vaccines (1 of 2) 2017 COVID-19 Vaccine (1 - 2023-2 5 season) 2024 Influenza Vaccine (#1) 2024 06/19/2018 HIB Vaccines Aged Out No longer eligi ble based on patient's age to complete this topic HPV Vaccines Aged Out No longer eligi ble based on patient's age to complete this topic Hepatitis A Vaccines Aged Out No long er eligible based on patient's age to complete this topic IPV Vaccines Aged Out No longer eligi ble based on patient's age to complete this topic MMR Vaccines Aged Out No longer eligi ble based on patient's age to complete this topic Meningococcal ACWY Vaccine Aged Out N o longer eligible based on patient's age to complete this topic Meningococcal B Vacine Aged Out No lo nger eligible based on patient's age to complete this topic Pneumococcal Vaccine: Pediat rics (0 to 5 Years) and At-Risk Patients (6 to 64 Years) Aged Out No longer eligi ble based on patient's age to complete this topic RSV Immunization Patients Un cecilia 20 months Aged Out No longer eligible b ased on patient's age to complete this topic Varicella Vaccines Aged Out No longer eligible based on patient's age to complete this topic Care Teams Residential Collections Relationship Specialty Start Date End Date Rosales Rios MD [address] [place] [address] [place], [place] PCP - General Internal Medicine 06/19/17
--- OUTSIDE RECORDS SUMMARY | 2024-10-26 18:01 | XMS_ITS | Clinical Summary ---
Author Organization [facility] Address [address] [facility] [address] [place] [address] Phone Care Team Providers Care Geriatric Physical Therapist Name Role Phone Isamar Jaime MD Primary Care Provider Allergies Active Allergy Reactions Criticality Noted Date Comments Bupropion 12/10/2022 Clarithromycin 03/11/2009 Other reaction(s): thrush Codeine Vomiting 12/10/2022 Fentanyl Itching 03/11/2009 Other reaction(s): hives, itching Fluoxetine 12/10/2022 Oxycodone-Acetaminophen 12/10/2022 Penicillins 03/11/2009 Medications budesonide-form oterol (SYMBICORT) 160-4.5 MCG/ACT inhaler Inhale 2 Active butalbital-aspi rin-caffeine (FIORINAL) 50-325-40 MG capsule Take 2 capsules by mouth 2 Active calcium carbonate (OS-CAREN) 1250 (500 Ca) MG tablet Active carvedilol (COREG) 25 MG tablet See Instructions, TAKE 1 TABLET BY MOUTH TWICE DAILY, # 180 tablet, Refills 1, Tot. Refills 1, Maintenance, 12/30/21 16:38:00 EDT, Instructions Replace Required Details, Route to Pharmacy Electronically, [facility] #[id number], 157.48, cm, ... 7 Active gabapentin (NEURONTIN) 600 MG tablet See Instructions, TAKE 1 TABLET BY MOUTH THREE TIMES DAILY, # 90 tablet, 0 Refills, [facility] #[id number], 157.48, cm, 10/19/21 13:38:00 EST, Height 2 Active lidocaine (LIDODERM) 5 % patch Apply 1 patch topically 2 Active mirtazapine (REMERON) 30 MG tablet Take 1 tablet by mouth 2 Active montelukast (SINGULAIR) 10 MG tablet Take 1 tablet by mouth 5 Active omeprazole (PriLOSEC) [address] capsule Take 1 capsule by mouth 5 Active spironolactone (ALDACTONE) 25 MG tablet See Instructions, TAKE 1 TABLET BY MOUTH DAILY LABS AND APPOINTMENT. DUE BEFORE FUTURE REFILLS, # 90 tablet, Refills 3, Instructions Replace Required Details, Route to Pharmacy Electronically, [facility] #[id number], 157.48, cm, 10/19/21 13:38:00... 6 Active traMADol (ULTRAM) 50 MG tablet Take 2 tablets by mouth 2 Active lisinopril 20 MG tablet Take 20 mg by mouth 1 (one) time each day Active predniSONE 5 MG (21) tablet therapy pack Take by mouth Act kay cetirizine (ZyrTEC) 10 MG tablet Take 10 mg by mouth 1 (one) time each day Active senna (SENOKOT) 8.6 MG tablet Take 1 tablet by mouth 1 (one) time each day Active Fluticasone-Ume clidin-Vilant (TRELEGY ELLIPTA IN) Inhale Active Lidocaine & Adhesive Sheet 5 % (Patch) kit Apply topically Active ipratropium (ATROVENT) 0.02 % nebulizer solution Take 500 mcg by nebulization in the morning and 500 mcg at noon and 500 mcg in the evening and 500 mcg before bedtime. Active levalbuterol (XOPENEX) 0.31 MG/3ML nebulizer solution Take 1 ampule by nebulization 3 (three) times a day Active ibuprofen (ADVIL,MOTRIN) 800 MG tablet Take 800 mg by mouth every 6 (six) hours if needed for mild pain Active azithromycin (ZITHROMAX) 250 MG tablet Take 250 mg by mouth 1 (one) time each day Take 2 tablets the first day, then 1 tablet daily for 4 days. Active Active Problems Problem Noted Date Diagnosed Date Air hunger 12/10/2022 Alopecia 12/10/2022 Benign hypertensive renal disease 12/10/2022 Chronic allergic conjunctivitis 12/10/2022 Chronic kidney disease stage 2 12/10/2022 Chronic low back pain 12/10/2022 [id number] respiratory failure 12/10/2022 Depressive disorder 12/10/2022 Hypokalemia 12/10/2022 Lumbosacral radiculitis 12/10/2022 Overview (05/12/2024): Replacing diagnoses that were inactivated after the 05/12/24 Regulatory Import Unspecified menopausal and postmenopausal disord er 12/10/2022 Pulmonary fibrosis 12/10/2022 Perineural cyst 12/10/2022 Obese class I 12/10/2022 Thoracic spondylosis 12/10/2022 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 Dependence on supplemental oxygen 09/04/2017 Chronic obstructive pulmonary disease 05/23/2017 Allergic rhinitis 04/09/2017 Hypertension 10/25/2014 Chronic constipation 10/14/2014 Degeneration of lumbar intervertebral disc 08/30 Fibromyositis 08/30/2014 Solitary pulmonary nodule 08/30/2014 Headache associated with sexual activity 014 Gastroesophageal reflux disease 01/29/2014 Hiatal hernia 10/31/2013 Migraine without aura 06/10/2013 Microalbuminuria 02/24/2013 Vitamin D deficiency 03/21/2011 Family History Medical History Relation Comments Kidney disease Sibling brother Relation Status Comments Sibling Social History Tobacco Use Types Packs/Day Years Used Date Smoking Tobacco: Former Cigarettes Q uit: 08/12/2014 Comments:Smoking History Inf o:Every day Alcohol Use Standard Drinks/Week Comments No 0 (1 standard drink = 0.6 oz pur e alcohol) Comments Unknown Sex and Gender Information Value Date Recorded Sex Assigned at Not on file Legal Sex Female 5:15 PM EST Gender Identity Not on file Sexual Orientation Not on file Last Filed Vital Signs Vital Sign Reading Time Taken Comments Blood Pressure 132/80 12/12/2022 4:03 PM EDT Pulse 79 12/12/2022 4:03 PM EDT Temperature - - Respiratory Rate - - Oxygen Saturation 98% 12/12/2022 4:03 PM EDT Inhaled Oxygen Concentration - - Weight 75.8 kg (167 lb) 12/12/2022 4:03 PM EDT Height 160 cm (5' 3 ) 02/10/2019 12:00 PM EDT Body Mass Index 29.58 02/10/2019 12:00 PM EDT Plan of Treatment Health Maintenance Due Date Last Done Comments Breast Cancer Screening 1965 Hepatitis B Vaccine (1 of 3 - 19+ 3-dose series) 1986 08/12/1991 Colorectal Cancer Screening: Annual FOBT 02/19/2016 Colorectal Cancer Screening: Colonoscopy 02/19/2016 Colorectal Cancer Screening: Sigmoidoscopy 02/19/2016 Pneumococcal Vaccine: Pediat rics (0 to 5 Years) and At-Risk Patients (6 to 64 Years) (3 of 3 - PPSV23 or PCV20) 07/12/2021 09/12/2017, 07/12/2016 Influenza Vaccine (#1) 2024 06/19/2018, 2016 Insurance * Guarantor: Marielle Das Account Type Relation to Patient Date of Phone Billing Address Personal/Family Self [address] [employer] ([id number]) [place] [id number] [facility] [employer] ([id number]) Care Teams Geriatric Physical Therapist Relationship Specialty Start Date End Date Isamar Jaime MD [address] [place] [id number] PCP - General Internal Medicine 12/06/22
== END 2024-10-26 16:04 | disposition home or self-care (01) ==
LOC: HO.HPS 15:31
PROVIDERS: PCP Internal Medicine; Visit Provider Hospitalist
DX: J43.2 Centrilobular emphysema (principal); J96.11 Chronic respiratory failure with hypoxia; F19.20 Other psychoactive substance dependence, uncomplicated; K44.9 Diaphragmatic hernia without obstruction or gangrene; R91.8 Other nonspecific abnormal finding of lung field; D50.9 Iron deficiency anemia, unspecified; E04.1 Nontoxic single thyroid nodule; E04.9 Nontoxic goiter, unspecified
CPT/HCPCS: 99214

== ENCOUNTER → 2024-10-26 15:30 | Outpatient (BNVA) | payer OTHER, SELFPAY | PROVIDERS: PCP Internal Medicine; Visit Provider Hospitalist | DX: J43.2 Centrilobular emphysema (principal); J96.11 Chronic respiratory failure with hypoxia; F19.20 Other psychoactive substance dependence, uncomplicated; K44.9 Diaphragmatic hernia without obstruction or gangrene; R91.8 Other nonspecific abnormal finding of lung field; D50.9 Iron deficiency anemia, unspecified; E04.1 Nontoxic single thyroid nodule; E04.9 Nontoxic goiter, unspecified; Z99.81 Dependence on supplemental oxygen | CPT/HCPCS: 99212 ==

== ENCOUNTER 2025-02-23 13:56 | Outpatient (AMB) | payer OTHER, SELFPAY ==
[2025-02-23 13:58] VITALS: BP 122/82; PULSE 78; O2SAT 97; BMI 23.0
--- NOTE | 2025-02-23 13:58 | A.OFFVIS_ITS ---
Vital Signs 02/23/25 13:58 Height 5 ft 3 in Weight 130 lb 1.164 oz BMI 23.0 BP 122/82 Blood Pressure Location Lt brachial Position Sitting Pulse 78 Pulse Source Pulse Oximeter Pulse Oximetry (%) 97 Oxygen Delivery Method Room Air Intake Visit Reasons: COPD Allergies clarithromycin (From Biaxin) Allergy (Severe, Verified 02/23/25 14:01) Rash fentanyl Allergy (Severe, Verified 02/23/25 14:01) Agitated Influenza Virus Vaccines Allergy (Severe, Verified 02/23/25 14:01) Fever HPI Comments Details: The patient is a 60-year-old woman with a known history of COPD, chronic respiratory failure on oxygen who apparently has been decompensated from respiratory standpoint. She had been admitted to the hospital and ultimately discharged on palliative care. Subsequently she transition to hospice level of care. However her condition stabilized and she was able to not qualify for hospice and longer. Soft to 2 years hospice was discontinued. She continues to receive help from family. She continues on her oxygen supplementation. The patient continues on her respiratory therapy with good adherence. She has been steroid dependent. At this point will re-evaluate her overall condition. The patient also has a history of tobacco dependency. She now has quit. She has had stable pulmonary nodules in the past. Due to her smoking history she is high risk for malignancy so therefore we will refer her to the lung cancer screening program. 03/09/2022 the patient is here for pulmonary follow-up visit. She continues to struggle with breathing. Significant dyspnea on exertion. She also has lower extremity weakness. She comes in on a wheelchair. She has been using her oxygen. She is upset she could not get the noninvasive ventilator. Unfortunately her insurance company denied it. She at this time will have her undergo a in-lab sleep study in order to monitor her end-tidal CO2 and see if she qualifies for PAP therapy that fashion. She continues use respiratory therapy. She does have partial response to therapy. We did talk about considering the lung volume reduction interventions such as the xephyr valves. She is strongly considering this. However, she would like to wait until next year. The patient needs to start pulmonary rehabilitation. I did provide her information previously about online rehab. 01/10/2023 the patient is here for a pulmonary follow-up visit. She has been about the same. Continues use her oxygen with good effect. She does not leave the house much. A less for doctor's appointments. She continues with respiratory therapy. She does not want to pursue and person pulmonary rehab. Also is not interested in pursuing any tertiary referral to [place]. she con tinues using prednisone as prescribed. She has been trying to cut down. Based on her chronic use of prednisone she will probably require a small dose daily. With did repeat her alpha-1 antitrypsin DNA swab since she has not had this type of swab in the past. Very unlikely to be positive with multiple alpha-1 testings done previously. 07/18/2023 the patient is here for a pulmonary follow-up visit. The patient has been doing fair. She was taken off the anticholinergics because of the history of glaucoma. She has required multiple interventions for the glaucoma and is still not completely under control. She also has significant cataracts that she needs to deal with afterwards. She has been on the Symbicort in his seems to be effective but not as effective as the Trelegy unfortunately. She is responding well to the theophylline. Therefore will try to increase the theophylline from 300-400 and will check her theophylline levels in the next few weeks. Will also recheck her venous gas and other blood work that is important. The patient will continue with current respiratory therapy. She also continues with her oxygen. The patient is willing to consider the lung volume reduction intervention valves. Only if it can be done locally. In there may be some AE program opening up at [facility]. Will consider that once her eye issues are resolved. The meantime will continue to optimize respiratory therapy and will follow-up in 3 months. 12/26/2023 the patient is here for pulmonary follow-up visit. She continues to have significant shortness of breath. She has been using her oxygen regularly. She has been upset because she does not have a portable oxygen concentrator and therefore has limited portability. She was at her daughter's wedding and she ran out of oxygen and she started developing significant shortness of breath. The patient needed assistance in order to get her oxygen readily available. I will reach out to her [employer] company again, [employer], to see about getting her portable oxygen concentrator. The patient also has been using the oxygen while sleeping. He has been affecting beneficial. She continues use her respiratory medicine. She still continues to use prednisone. Still has episodes of difficulty breathing. Will go ahead and request pulmonary function studies. She did have a blood gas done today. Her CO2 continues to be stable 44 mmHg. T he patient continues to also be anemic. Has significant iron-deficiency anemia and she needs to follow-up with her primary care doctor. The patient will start taking iron. She may need IV iron if her numbers are getting any better. Indeed her significant anemia as making her respiratory symptoms worse since she has advanced COPD. 03/10/2024 the patient is here for a pulmonary follow-up visit. The patient is happy she did get a portable oxygen concentrator she has been having better portability outside of the home which is reassuring. She is here with a daughter who is and this also has resulted in significant amount of ja in the family. She needs to get vaccinated for RSV. She also will get the flu shot. She is up-to-date with the Tdap. From a respiratory status she is tolerating the theophylline. We did request a theophylline level but could not be run. Will go ahead and request blood work including the theophylline level and also her arch stores. The patient did have a CT scan of the chest which was personally by me. Appears that she has a larger left-sided nodular density of the thyroid. She is going to have an ultrasound done by her primary care doctor which is reassuring. In the meantime will get blood work including thyroid function studies. Especially with significant symptoms. The patient will also continue respiratory therapy. We did talk about again lung volume reduction intervention. She will consider this further after her grand son is born. 06/29/2024 the patient is here for a pulmonary follow-up visit. Overall the patient has been doing okay. She is excited about becoming a g a. She continues on the oxygen supplementation with good effect. She continues to start tolerate the theophylline well. She had blood work demonstrating stabilization of her previous electrolyte derangements. She has been cutting down the prednisone because she has had elevated sugars at risk for diabetes. She is down to 2.5 mg daily. She is going to slowly wean by 0.5 mg every week or 2 to see if she can come down to 0. When she is on 0 she should get cortisol levels to see if her adrenal glands are starting to function appropriately. We did look at her CT scan of the chest that she had over the summer to the lung cancer screening program and was stable. 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 But kidney function is perfectly normal which is reassuring. She is still having significant issues with daytime drowsiness now. She is falling asleep all the time. She tried modafinil in the past and we can try small dose now. Her last blood gas was reassuring so I do not suspect that is CO2 related. In addition to that it may be related to coming off the prednisone. 10/26/2024 the patient is here for a pulmonary follow-up visit. The patient overall has been doing a lot better. She is tolerating her respiratory medications well. She denies any adverse effects at this time. She is able to cut down the prednisone down to 1 mg daily. She is wondering she can cut down to 0.5 mg daily although is difficult to cut the tablets. Therefore she can try taking 1 tablet every other day for now and extending to 3 times a week whenever she is ready. Whenever she is off completely she can have cortisol level was checked to see if she has any evidence of any adrenal insufficiency. However, based on the fact that she is doing well on such as small doses unlikely that she has any evidence of any adrenal insufficiency at this time. The patient did not try the modafinil because it was never covered and that is reassuring because that is 1 less medication that she is taking. Will go ahead and recheck her theophylline levels to make sure that she is adequately treated. The patient also needs to start exercising more and would love for her to practice her Rosa M or airway resistance therapy in order to strengthen her respiratory muscles and her capacity. Her lung cancer screening CT scan will be done sometime in the summer 5. Will plan to follow-up sometime after that. If she has any issues prior to that she will call for an earlier assessment. 02/23/2025 the patient is here for a pulmonary follow-up visit. Overall she is doing very well. She has cut down significant amount of sugar in extra calories and she has had significant amount of weight loss. She has done it and healthy way. The patient has been able to wean off her prednisone altogether. Will go ahead and check some blood work including a cortisol level. She continues use her oxygen with good effect. She also continues use the theophylline. She does need a theophylline level she will have that done today. Will also take advantage and check a venous blood gas to assess her CO2. But overall she is doing good she needs to continue to exercise regularly. We again talked about lung volume reduction intervention as she is not interested in the right now. She will continue with the current respiratory therapy and will get the blood work done today. The patient will follow-up in 4-6 months if she has any issues prior to this she will call for an earlier assessment. [facility] Medical History (Updated 02/23/25 @ 22:28 by Hugo Cobb MD) Thyroid nodule Iron deficiency anemia Chronic low back pain Kidney donor Depression Hypertension Migraines On supplemental oxygen therapy Personal history of nicotine dependence Pulmonary nodules Hiatal hernia Steroid dependent Chronic respiratory failure COPD (chronic obstructive pulmonary disease) Surgical History (Updated 11/03/21 @ 14:01 by Paulina Patterson PA-C) History of nasal surgery History of kidney donation Social History Patient Tobacco Use Status: Former Tobacco user Tobacco use type: Cigarette Years Smoked: onset 18, 1/2-1ppd x 35yrs, 25pyh, quit 2014 Review of Systems Const Denies fever(s) and Reports weight loss Eyes Reports change in vision ENT Denies change in voice Card Denies palpitations, Reports dyspnea and Reports dyspnea on exertion Resp Denies chest congestion, Reports cough, Denies hemoptysis, Reports dyspnea, Reports dyspnea on exertion and Reports wheezing GI Reports no additional complaints Musc Reports abnormal gait and Reports back pain Skin/Breast Denies rash Neuro Reports abnormal gait Endo Denies palpitations Aller/Immun Reports wheezing Physical Exam Vital Signs: Last Vital Signs Pulse 78 02/23/25 13:58 BP 122/82 02/23/25 13:58 Pulse Ox 97 02/23/25 13:58 Oxygen Delivery Method Room Air 02/23/25 13:58 BMI result Body Mass Index 23.0 Const General: alert HEENT Head: Yes normocephalic Neck Neck: Yes normal visual inspection, Yes full ROM and Yes no lymphadenopathy Chest Chest palpation & inspection: normal inspection of the chest Resp Effort & Inspection: normal respiratory effort Auscultation: no wheezes and diminished lung sounds Cardio Rate: regular rate Rhythm: regular rhythm Heart sounds: S1 normal heart sound present and S2 normal heart sound present GI Palpation (GI): Soft to palpation and nontender Auscultation: normal bowel sounds Skin General skin exam: no rashes or lesions noted Extrem General: Yes no clubbing, cyanosis or edema Assessment & Plan Assessment & Plan (1) COPD (chronic obstructive pulmonary disease): Code(s): J44.9 - Chronic obstructive pulmonary disease, unspecified Category: Medical Qualifiers: COPD type: emphysema Emphysema type: centrilobular Qualified Code(s): J43.2 - Centrilobular emphysema (2) Chronic respiratory failure: Code(s): J96.10 - Chronic respiratory failure, unspecified whether with hypoxia or hypercapnia Category: Medical Qualifiers: Respiratory failure complication: hypoxia Qualified Code(s): J96.11 - Chronic respiratory failure with hypoxia (3) Steroid dependent: Comment: now off Code(s): F19.20 - Other psychoactive substance dependence, uncomplicated Category: Medical (4) Hiatal hernia: Code(s): K44.9 - Diaphragmatic hernia without obstruction or gangrene Category: Medical (5) Pulmonary nodules: Code(s): R91.8 - Other nonspecific abnormal finding of lung field Category: Medical (6) Iron deficiency anemia: Code(s): D50.9 - Iron deficiency anemia, unspecified Category: Medical Qualifiers: Iron deficiency anemia type: unspecified iron deficiency Qualified Code(s): D50.9 - Iron deficiency anemia, unspecified (7) Thyroid nodule: Code(s): E04.1 - Nontoxic single thyroid nodule Category: Medical (8) Enlarged thyroid gland: Comment: (Enlarged left lobe ofthyroid with possible 2.5 cm mass - on 02/12/24 LDCT) Code(s): E04.9 - Nontoxic goiter, unspecified Category: Medical Plan continue oxygen supplementation with sleep and activity : 3L pulse oxygen with activity. Battery powered portable oxygen concentrator for improved portability outside of the house. Will use 2L oxygen while sleeping. continue Trelegy daily short-acting beta agonist as needed prednisone is off continue theophylline 400mg will come in to recheck levels consider lung volume reduction interventions. This will require a referral to [place] or [facility]. pulmonary rehabilitation. On line will be sufficient she is already exercising at home on her treadmill LDCT Bloodwork, bloodgas Follow-up in 3-4 months Orders: Orders Venous Blood Gas Today E78.00 - Pure hypercholesterolemia, unspecified, F19.20 - Other psychoactive substance dependence, uncomplicated, J43.2 - Centrilobular emphysema Basic Metabolic Panel Today E78.00 - Pure hypercholesterolemia, unspecified, F19.20 - Other psychoactive substance dependence, uncomplicated, J43.2 - Centrilobular emphysema LDL Cholesterol Direct Today E78.00 - Pure hypercholesterolemia, unspecified, F19.20 - Other psychoactive substance dependence, uncomplicated, J43.2 - Centrilobular emphysema Magnesium Today J43.2 - Centrilobular emphysema Alpha 1 Anti-trypsin Today E78.00 - Pure hypercholesterolemia, unspecified, F19.20 - Other psychoactive substance dependence, uncomplicated, J43.2 - Centrilobular emphysema Complete Blood Count Auto Diff Today E78.00 - Pure hypercholesterolemia, unspecified, F19.20 - Other psychoactive substance dependence, uncomplicated, J43.2 - Centrilobular emphysema Liver Panel Today E78.00 - Pure hypercholesterolemia, unspecified, F19.20 - Other psychoactive substance dependence, uncomplicated, J43.2 - Centrilobular emphysema Cholesterol Today E78.00 - Pure hypercholesterolemia, unspecified, F19.20 - Other psychoactive substance dependence, uncomplicated, J43.2 - Centrilobular emphysema HDL Cholesterol Today E78.00 - Pure hypercholesterolemia, unspecified, F19.20 - Other psychoactive substance dependence, uncomplicated, J43.2 - Centrilobular emphysema Cortisol Random Today E78.00 - Pure hypercholesterolemia, unspecified, F19.20 - Other psychoactive substance dependence, uncomplicated, J43.2 - Centrilobular emphysema Phosphorus Today J43.2 - Centrilobular emphysema Coding Level of Care Code Est Pt Level 4 (47355) Complex EM visit Add On G2211 Diagnoses Centrilobular emphysema J43.2 COPD type: emphysema Emphysema type: centrilobular Chronic respiratory failure with hypoxia J96.11 Respiratory failure complication: hypoxia Steroid dependent F19.20 Hiatal hernia K44.9 Pulmonary nodules R91.8 Iron deficiency anemia, unspecified iron deficiency anemia type D50.9 Iron deficiency anemia type: unspecified iron deficiency Thyroid nodule E04.1 Enlarged thyroid gland E04.9 Time Spent (min) 17
--- OUTSIDE RECORDS SUMMARY | 2025-02-23 15:16 | XMS_ITS | Clinical Summary ---
Author Organization [facility] Address [address] [facility] [address] [place] [address] Phone Care Team Providers Care Block Setter Gypsum Name Role Phone Isamar Jaime MD Primary Care Provider [phone] Allergies Active Allergy Reactions Criticality Noted Date [...] Replace Required Details, Route to Pharmacy Electronically, [id number], 157.48, cm, ... 7 Active gabapentin (NEURONTIN) 600 MG tablet See Instructions, TAKE 1 TABLET BY MOUTH THREE TIMES DAILY, # 90 tablet, 0 Refills, [facility] #[id number], 157.48, cm, 10/19/21 13:38:00 EST, Height 2 [...] Replace Required Details, Route to Pharmacy Electronically, [facility] #[id number], 157.48, cm, 10/19/21 13:38:00... 6 Active traMADol [...] 2 12/10/2022 Chronic low back pain 12/10/2022 Czgyz-gq-swvyned respiratory failure 12/10/2022 Depressive disorder 12/10/2022 Hypokalemia [...] Colorectal Cancer Screening: Sigmoidoscopy 02/19/2016 Pneumococcal Vaccine: 50+ Ye ars (3 of 3 - PCV20 or PCV21) 07/12/2021 09/12/2017, 07/12/2016 Influenza Vaccine (#1) 2025 06/19/2018, 2016 Pneumococcal Vaccine: Peds ( 0 to 5 Years) and At-Risk Patients (6 to 49 Years) Discontinued 09/12/2017, 07/12/2016 Insurance * Guarantor: Marielle Das Account Type Relation to Patient Date of Phone Billing Address Personal/Family Self [address] [employer] ([id number]) [place] [phone] [facility] [employer] ([id number]) [place] [id number] Care Teams Block Setter Gypsum Relationship Specialty Start Date End Date Isamar Jaime MD [address] [place] [id number] PCP - General Internal Medicine 12/06/22
--- OUTSIDE RECORDS SUMMARY | 2025-02-23 15:16 | XMS_ITS | Data Portability ---
Author Organization [facility] Address [address] [place] [id number] Care Team Providers Care Test Engineering Technician Name Role Phone [facility] Referring Provider [phone] Assessment No assessment recorded. Plan of Treatment Reminders Order Date Submit Date Provider Last Modified By Organization Details Last Modified Time Details Appointments None recorded. Lab cmp, whole blood + maurice 023 023 [facility], [address] [place] [address], [phone] 3 11:14:19 Referral None recorded. Procedures None [...] Not Available Not Available No t Available Dru Ellipta 100 mcg-62.5 mcg-25 mcg powder for inhalation INHALE 1 PUFF BY MOUTH DAILY active Not Available Not Available No t Available Vitals Date Recorded Body temperature Heart rate Body weight Oxygen saturation Oxygen saturation in Arterial blood by Pulse oximetry Inhaled oxygen flow rate Respiratory rate Body weight Respiratory rate Heart rate Body temperature Oxygen saturation Provider Name and Address Organization Details Last Updated DateTime 3 98 [degF] 78 /min 64841.7 2 g 98 % 98 % 3 L/min 18 /min 25903.7 2 g 18 /min 78 /min 98 [degF] 98 % Not Available [facility] - production 3 15:38:31 Date Recorded Oxygen saturation in Arterial blood by Pulse oximetry Inhaled oxygen flow rate Systolic And Diastolic Systolic And Diastolic Provider Name and Address Organization Details Last Updated DateTime 02/02/2023 98 % 3 L/min 102/66 mm[Hg] 102/66 mm[Hg] Not Available [facility] 3 15:38:31 Social History None recorded. Functional Status None recorded. Mental Status None recorded. Family History Nothing Reported. Medical History No medical history recorded. Gynecological HistoryNo gynecological history recorded. Obstetrics History GPAL:G 0 P 0 0 0 0 Past Encounters Encounter ID Performer Location Encounter Start Date Encounter Closed Date Diagnosis/Indication Diagnosis SNOMED-CT Code Diagnosis ICD10 Code Diagnosis Note [id number] Tom Dunne MD [facility] [address] [place] [phone] 02/02/2023 14:54:33 02/04/2023 10:10:59 Cramp 64749578 R25.2 Cramps in setting of recently starting Acetazolom annia instead of Spironolac tone s/p glaucoma surgery. Labs c/w TID acetazolao mide (mild hyponaterm ia and metabolic acidosis). K is now within normal limits. Suspect cramps may be related to electrolyt es. Vitals WNL. Advised to call optho on-call with labs results to recommend potentiall y lowering TID dosing of Acetazolam [facility] Concerns Section Related Observation LastModified by Organization Detai ls LastModified Time None Recorded Concern Status LastModified by Organization Details LastModified Time None Recorded Advance Directives Directive None Recorded Payers Insurance Date Sequence Insurance Name Policy Number Policy Johns Covered Member ID Johns Member ID Guarantor Name 09/25/2023 1 [facility] - DOS ON OR AFTER 2022 - DUAL ELIGIBLE - [employer] AND [employer] (MEDICARE REPLACEMENT/ADV ANTAGE - HMO) Marielle Das [id number] Marielle Das Notes Date Note Type Note [...] ..................... ..................... ..................... ..................... ..................... ..................... ............... Auto Dismantler Note From [place]: Pt presents A@O 4. [place] warm and dry. Pt c/o legs cramps and weakness yesterday. Pt sts feels better today with no complaints. Pt denies CP SOB Fever nausea diarrhea dizziness. Baseline vitals assessed and recorded. Poc blood work. Sodium high at 131 and bicarb high at 18. [facility] contacted and Pt advised to contact elevator constructor helper due to medication she is for glaucoma. Pt has appt on saturday. Pt advised to go to appt . And call elevator constructor helper to see if dosage of med can be reduced. Pt educated on signs that would indicate the ER Auto Dismantler Allergies: Fentanyl ..................... ..................... ..................... ..................... ..................... ..................... ............... Disposition: Fulfilled Tom Clintoneet, MD [address] [facility], [place], [phone], [place] [facility], [employer] 02/02/2023 16:50:07 OBGyn Episode No OBEpisode recorded.
--- OUTSIDE RECORDS SUMMARY | 2025-02-23 15:16 | XMS_ITS | Clinical Summary ---
[facility] Organization [facility] Address [id number] [place] [id number] Care Team Providers Care Surg Nurse Name Role Phone Rosales Rios MD Primary Care Provider Surgical History Surgery Date Site/Laterality Comments NEPHRECTOMY PROCEDURE: HISTORICAL NEPHRECTOMY; COMMENT: donor nephrectomy Medical History Medical History Date Comments Allergic rhinitis 04/09/2017 DX:Allergic rh initis Atony of colon 10/14/2014 DX:Atony of colo n Chronic constipation 10/14/2014 DX:Chronic constipation Chronic obstructive pulmonar y disease (CMS/HCC V24, CMS/HCC V28) 05/23/2017 DX:Chronic obstructive pulm onary disease (HCC) Chronic respiratory failure with hypoxia (CMS/HCC V24, CMS/HCC V28) 09/04/2017 DX:Chronic respirat ory failure with hypoxia (HCC) Degeneration of intervertebr al [...] Vaccines (1 of 2) 2017 COVID-19 Vaccine ( - 2023-2 5 season) 2024 Influenza Vaccine (#1) 2025 06/19/2018 HIB Vaccines Aged Out No longer [...] age to complete this topic Meningococcal B Vaccine Aged Out No l onger eligible based on patient's age to complete this topic RSV Immunization Patients Un cecilia 20 months Aged Out No longer eligible b ased on patient's age to complete this topic Varicella Vaccines Aged Out No longer eligible based on patient's age to complete this topic Care Teams Surg Nurse Relationship Specialty Start Date End Date Rosales Rios MD [address] [place] [address] [facility], [place] PCP - General Internal Medicine 06/19/17
== END 2025-02-23 14:27 | disposition home or self-care (01) ==
LOC: HO.HPS 13:56
PROVIDERS: PCP Internal Medicine; Visit Provider Hospitalist
DX: J43.2 Centrilobular emphysema (principal); J96.11 Chronic respiratory failure with hypoxia; F19.20 Other psychoactive substance dependence, uncomplicated; K44.9 Diaphragmatic hernia without obstruction or gangrene; R91.8 Other nonspecific abnormal finding of lung field; D50.9 Iron deficiency anemia, unspecified; E04.1 Nontoxic single thyroid nodule; E04.9 Nontoxic goiter, unspecified
CPT/HCPCS: 99214; G2211

== ENCOUNTER 2025-02-23 13:56 | Outpatient (REF) | payer OTHER, SELFPAY ==
[2025-02-23 14:45] LABS: MANUAL DIFF FLAG NO
[2025-02-23 14:50] LABS: Venous Blood Gas Refer to POC result
[2025-02-23 14:51] LABS: VBG HCO3 24 mmol/L (22-26); VBG O2 % Saturation 60.0 %
[2025-02-23 15:11] LABS: Hematocrit 42.0 % (37.0-47.0); Hemoglobin 13.9 g/dl (12.0-16.0); Imm Gran Abs Auto 0.02 X10*3/uL (0.00-0.03); Imm Gran Pct Auto 0.3 % (0.0-0.4); Lymphocytes Absolute Auto 2.2 X10*3/uL (1.2-4.9); Mean Corpuscular HGB Conc 33.1 g/dl (31.0-35.0); Mean Corpuscular Hemoglobin 29.6 pg (27.0-33.0); Mean Corpuscular Volume 89.6 fL (80.0-98.0); NRBC Abs Auto 0.000 X10*3/uL (0.0-0.012); NRBC Pct Auto 0.0 /100WBC (0.0-0.2); Platelet Count 281 X10*3/uL (160-400); Red Blood Count 4.69 X10*6/uL (4.20-5.50); White Blood Count 7.1 X10*3/uL (4.8-10.8)
[2025-02-23 15:33] LABS: Alanine Aminotransferase 14 U/L (0-31); Albumin Level 4.5 g/dL (3.5-5.0); Alkaline Phosphatase 68 U/L (39-117); Anion Gap 13 (12-20); Aspartate Amino Transferase 20 U/L (5-31); Blood Urea Nitrogen 7 mg/dL (9-16); Calcium 9.6 mg/dL (8.4-10.2); Carbon Dioxide 24 mmol/L (22-29); Chloride 109 mmol/L (96-108); Cholesterol 245 mg/dL (<200); Estimated Glomerular Filt Rate 58; HDL Cholesterol 59 mg/dL (>40); Magnesium 2.0 mg/dL (1.6-2.6); Potassium 3.8 mmol/L (3.3-5.1); Sodium 142 mmol/L (135-145); Total Protein 6.9 g/dL (6.5-8.0)
[2025-02-24 08:18] LABS: Theophylline 16.2
== END 2025-02-23 13:57 | disposition home or self-care (01) ==
LOC: HO.LAB 13:56
PROVIDERS: PCP Internal Medicine; Visit Provider Hospitalist
DX: J43.2 Centrilobular emphysema (principal); D50.9 Iron deficiency anemia, unspecified; E04.1 Nontoxic single thyroid nodule; F19.20 Other psychoactive substance dependence, uncomplicated; R91.8 Other nonspecific abnormal finding of lung field; J96.11 Chronic respiratory failure with hypoxia; E78.00 Pure hypercholesterolemia, unspecified; Z99.81 Dependence on supplemental oxygen
CPT/HCPCS: 36415; 80048; 80076; 80198; 82103; 82465; 82533; 82803; 83718; 83721; 83735; 84100; 85025; 99212

== ENCOUNTER 2025-04-01 13:06 | Outpatient (REF) | payer OTHER, SELFPAY ==
--- NOTE | ~2025-04-01 | CT_ITS ---
CLINICAL HISTORY: Z87.891 - Personal history of nicotine dependence CT lung cancer screening (LDCT) Comparison: CT/REG/CA/SR - CT LUNG SCREENING - 02/12/24 15:28 EDT Technique: Axial CT images of the chest using low-dose technique. Referring provider counseled the patient on shared decision-making for LDCT screening. Additional counseling was provided on smoking cessation. Effective radiation dose total: DLP 29.7 mGycm, CTDIvol 0.9 mGy. Findings: 3.4 cm hypodense left thyroid nodule is present. There is no mediastinal, hilar, or axillary lymphadenopathy. The heart is normal in size. There is a trace pericardial effusion. The ascending aorta is dilated at 4.0 cm. Severe centrilobular emphysema is present. 3 mm right minor fissural lymph node is present. No suspicious pulmonary nodule is identified. Limited examination of the upper abdomen demonstrates no significant abnormality. No acute osseous abnormality is identified. No aggressive lytic or blastic lesion is seen. Impression: 1. Severe pulmonary emphysema. No suspicious pulmonary nodule is identified (Lung Rads 1). Recommend continued annual low-dose screening CT chest in 12 months. 2. Dilated 4.0 cm ascending aorta. 3. 3.4 cm hypodense left thyroid nodule. Recommend correlation with ultrasound exam. Category 1: Normal; continue annual screening Category 2: Benign appearance or behavior, continue annual screening Category 3: Probably benign, [address] recommended Category 4A: Suspicious, [address] recommended; may consider PET/CT Category 4B: Suspicious, Additional diagnostics and/or tissue sampling recommended Category 4X: Suspicious, Additional diagnostics and/or tissue sampling recommended Category 0: Recalls (incomplete screen due to Incomplete coverage, Noise, Respiratory motion, Expiration, Obscured by acute abnormality) This document has been electronically signed by: Fransisco Del Rio on 04/02/2025 11:51:35
--- OUTSIDE RECORDS SUMMARY | 2025-04-01 13:19 | XMS_ITS ---
Author Organization [facility] Address [address] [place], [place] [id number] Phone Care Team Providers Care Want Ad Supervisor Name Role Phone Isamar Jaime MD Primary Care Provide r Ollie Chacon MD Unavailable [phone] Transplant Episode Lung Candidate [facility] ([place], [place]) [facility] Evaluation began on 03/25/2019 Marked as Active on 03/25/2019 Lung CoordinatorCele Gallegos RN Email: [email or web address] Care Team Name Role Phone Fax Email Cele Gallegos RN Lung Coordinator [phone] [email or web address] Ollie Chacon MD Referring Physician [phone] N/A Marianela Angulo MD Transplant Medical Physician [phone] N/A N/A Events Pre-Transplant Referred: 02/19/2019 Evaluation began: 03/25/2019
--- OUTSIDE RECORDS SUMMARY | 2025-04-01 13:19 | XMS_ITS | Clinical Summary ---
Author Organization [facility] Address [address] [place] [phone] Care Team Providers Care Head Of Stock Name Role Phone Rosales Rios MD Primary Care Provider [phone] Surgical History Surgery Date Site/Laterality Comments NEPHRECTOMY [...] Vaccine ( - 2023-2 5 season) 2024 Depression Screening 08/12/2024 Influenza Vaccine (#1) 2025 06/19/2018 HIB Vaccines [...] age to complete this topic Care Teams Head Of Stock Relationship Specialty Start Date End Date Rosales Rios MD [address] [place] [address] Medical [facility], [place] PCP - General Internal Medicine 06/19/17
--- OUTSIDE RECORDS SUMMARY | 2025-04-01 13:19 | XMS_ITS | Clinical Summary ---
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 7 Active gabapentin (NEURONTIN) 600 MG tablet See Instructions, TAKE 1 TABLET BY MOUTH THREE TIMES DAILY, # 90 tablet, 0 Refills, [facility] #[id number], 157.48, cm, 10/19/21 13:38:00 EST, Height 2 [...] Replace Required Details, Route to Pharmacy Electronically, [facility] #[id number], 157.48, cm, 10/19/21 13:38:00... 6 Active traMADol [...] 2 12/10/2022 Chronic low back pain 12/10/2022 Roysz-dv-txyczyp respiratory failure 12/10/2022 Depressive disorder 12/10/2022 Hypokalemia [...] Phone Billing Address Personal/Family Self 1965 [address] [facility] ([id number]) [place] [phone] [facility] [employer] ([id number]) [place] [phone] Care Teams Paper Cone Drying Machine Operator Relationship Specialty Start Date End Date Isamar Jaime MD [address] [place] [address] PCP - General Internal Medicine 12/06/22
== END 2025-04-01 13:07 | disposition home or self-care (01) ==
LOC: HO.CT 13:06
PROVIDERS: PCP Internal Medicine; Visit Provider Physician Assistant Medical
DX: Z12.2 Encounter for screening for malignant neoplasm of respiratory organs (principal); Z87.891 Personal history of nicotine dependence
CPT/HCPCS: 71271

== ENCOUNTER → 2025-04-01 13:08 | Outpatient (BNV) | payer OTHER, SELFPAY | PROVIDERS: PCP Internal Medicine; Visit Provider Radiology Vascular & Interventional Radiology | DX: Z87.891 Personal history of nicotine dependence (principal); Z12.2 Encounter for screening for malignant neoplasm of respiratory organs; J43.9 Emphysema, unspecified; I77.810 Thoracic aortic ectasia; E04.1 Nontoxic single thyroid nodule | CPT/HCPCS: 71271 ==